=== PATIENT | male | born 1970 | race Hispanic/Latino ===

== ENCOUNTER 2018-02-22 07:56 | Emergency (ER) | payer OTHER ==
[~2018-02-22] VITALS: Ht 167.6 cm; Wt 99.8 kg
[~2018-02-22 07:56] MED LIST: BACTRIM DS TAB1 EACH PO; CRESTOR10 MG PO; PROCTOSOL-HC28.35 GM
[2018-02-22] MEDS ORDERED: FAMOTIDINE 20 MG/2 ML VIAL IV STA (08:12)
[2018-02-22] MEDS ORDERED: DICYCLOMINE HCL 20 MG/2 ML VIAL IM ONE (08:15)
[2018-02-22] MEDS ORDERED: SUCRALFATE 1 GM/10 ML SUSP PO ONE (08:15)
[2018-02-22 08:33] LABS: BASOPHILS % 0.7 % (0.0-1.0); EOSINOPHILS # (AUTO) 0.3 (0.0-0.4); EOSINOPHILS % 6.8 % (0.0-6.0); HEMATOCRIT 44.9 % (38.2-49.6); HEMOGLOBIN 15.5 g/dL (14.0-18.0); LYMPHOCYTES # (AUTO) 2.1 (1.0-3.2); LYMPHOCYTES % 49.3 % (18.0-39.1); MEAN CORPUSCULAR HEMOGLOBIN 29.6 pg (28-32); MEAN CORPUSCULAR HGB CONC 34.5 g/dL (31-35); MEAN CORPUSCULAR VOLUME 85.7 fL (81-99); MONOCYTES # (AUTO) 0.4 (0.2-0.8); MONOCYTES % 10.3 % (4.4-11.3); NEUTROPHILS # (AUTO) 1.4 (2.1-6.9); NEUTROPHILS % 32.7 % (38.7-80.0); PLATELET COUNT 154 x10e3/uL (140-360); RED BLOOD COUNT 5.24 x10e6/uL (4.3-5.7); RED CELL DISTRIBUTION WIDTH 13.3 % (11.7-14.4)
[2018-02-22 08:54] LABS: ALANINE AMINOTRANSFERASE 62 IU/L (0-55); ALBUMIN 3.6 g/dL (3.5-5.0); ALBUMIN/GLOBULIN RATIO 0.9 (0.8-2.0); ALKALINE PHOSPHATASE 63 IU/L (40-150); BLOOD UREA NITROGEN 15 mg/dL (7-26); BUN/CREATININE RATIO 19 (6-25); CALCIUM 9.1 mg/dL (8.4-10.2); CARBON DIOXIDE 25 mmol/L (22-29); CHLORIDE 105 mmol/L (98-107); CHOL/HDL RATIO 4.7 (3.9-4.7); CHOLESTEROL 265 MD/DL (0-199); CREATININE, SERUM 0.79 mg/dL (0.72-1.25); EST GLOMERULAR FILTRATION RATE > 60 ML/MIN (60-); GLUCOSE 100 mg/dL (74-118); HDL CHOLESTEROL 56 MG/DL (40-60); LDL CHOLESTEROL 171 MG/DL (60-130); LIPASE 25 U/L (8-78); SODIUM 137 mmol/L (136-145); TRIGLYCERIDES 189 MG/DL (0-149)
--- NOTE | 2018-02-22 09:33 | Diagnostic Imaging Report ---
PROCEDURE: X-RAY CHEST, TWO VIEWS COMPARISON: 02/24/2017. INDICATIONS: CHEST/EPIGASTRIC PAIN FINDINGS: The lungs are well-inflated. No focal airspace consolidation, pleural effusion, or pneumothorax. Stable moderate enlargement of the cardiac silhouette without pulmonary edema. No acute osseous abnormality. CONCLUSION: Moderate enlargement of the cardiac silhouette without vascular decompensation. Dictated by: Elmer Mcqueen M.D. on 02/22/2018 at 9:39 Electronically approved by: Elmer Mcqueen M.D. on 02/22/2018 at 9:39
--- NOTE | 2018-02-22 10:00 | Diagnostic Imaging Report ---
PROCEDURE:US GALLBLADDER COMPARISON:CT abdomen and pelvis with contrast 02/24/2017. INDICATIONS:Epigastric and RUQ Pain worse with meals TECHNIQUE: Sheehan-scale and color doppler transverse and longitudinal images of the right upper quadrant of the abdomen were obtained. FINDINGS: Liver: 15.9 cm in right mid-clavicular line. Diffusely increased parenchymal echogenicity. No masses. Main portal vein: 1.4 cm in caliber, hepatopedal flow. Gallbladder: No shadowing calculus, sludge, wall thickening, or pericholecystic fluid. Common Bile Duct: 0.5 cm in caliber. Sonographic Andrew's sign: Reported as negative. Right kidney: 11.9 cm. Normal renal cortical echogenicity. No solid masses or hydronephrosis. Pancreas: The visualized portions are unremarkable. Inferior vena cava: Patent Aorta: Non-aneurysmal Ascites: None in the right upper quadrant of the abdomen. CONCLUSION: Increased hepatic parenchymal echogenicity compatible with steatosis. Unremarkable sonographic appearance of the gallbladder. Dictated by: Elmer Mcqueen M.D. on 02/22/2018 at 10:05 Electronically approved by: Elmer Mcqueen M.D. on 02/22/2018 at 10:05
[2018-02-22 10:57] VITALS: BP 110/75
== END 2018-02-22 11:15 | disposition home or self-care (01) ==
LOC: ER 07:57
DX: R10.11 Right upper quadrant pain (principal); R10.13 Epigastric pain; K21.9 Gastro-esophageal reflux disease without esophagitis; K29.00 Acute gastritis without bleeding
CPT/HCPCS: 36415; 71046; 76705; 80053; 80061; 83690; 84484; 85025; 93005; 99284; J0500

== ENCOUNTER 2019-12-10 02:32 | Inpatient (IN) | payer OTHER ==
[2019-12-10] VITALS (8 sets, daily range): BP systolic 115–143; BP diastolic 71–89
[~2019-12-10] VITALS: Ht 170.2 cm; Wt 100.4 kg
--- OUTSIDE RECORDS SUMMARY | 2019-12-10 02:35 | XMS REPORT | Summary of Care ---
Author Author AYESHA Segura, KAYLEE CONTRERAS [facility] Unknown Address Unknown Phone Unavailable Care Team Providers Care Science Intern Name Role Phone AYESHA Segura, MACK Unavailable Unavailable [place] LOPEZ, YONG SHEA Unavailable Unavailable AYESHA LOPEZ [place], MACK Unavailable Unavailable Unavailable Unavailable Functional Status Name Dates Details Functional status health issues are not documented Status: Name Dates Details Cognitive status health issues are not d ocumented Status: Problems Name Dates Details Injury of left shoulder, initial encount er (959.2, S49.92XA) Status: Active Pain in both feet (729.5, M79.671) Status: Active Acute pain of left shoulder (719.41, M25 .512) Status: Active Plantar fasciitis of left foot (728.71, M72.2) Status: Active Plantar fasciitis of right foot (728.71, M72.2) Status: Active Complete rotator cuff tear of left shoul alejandro (727.61, M75.122) Status: Active 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 00) Status: Resolved History of kidney stones (V13.01, Z87.44 2) Status: Resolved Procedures Procedure Dates Details MR Shoulder w contrast [id number] Date: 23-Sep-2018 History of Rotator Cuff Repair Completed History of Kidney Surgery Completed History of Shoulder arthroscopy Complete d Immunization Name Dates Details Immunizations not documented Family History Name Dates Details Family history of cerebrovascular accide nt (CVA) (V17.1, Z82.3) Comments: Family History Status: Active Name Dates Details Family history of Patient denies medical problems (V49.89, Z78.9) Status: Active Name Dates Details Family history of Patient denies medical problems (V49.89, Z78.9) Status: Active Social History Name Dates Details - Status: Name Dates Details Never smoker Vital Signs Date Test Result Details 23-Sep-20188:29 BP Systolic 113 mm[Hg] Status: Comments: Lo cation: RUE; Position: Sitting BP Diastolic 76 mm[Hg] Status: Comments: Lo cation: RUE; Position: Sitting Weight 231 lb Status: Body Mass Index Calculated 36.18 kg/m2 Status: Body Surface Area Calculated 2.15 m2 Status: Results Date Description Value Details Results not documented Plan of Care Name Dates Details Planned Observations Planned Goals not documented Interventions Provided Plan* Patient Education/Instructions: * Patient Education Provided * Reassurance * Counseling Provided - Discussed with Family/Patient * Family/Patient given opportunity to ask questions. * Family/Patient Verbalized Understanding. * MRI report reviewed and finding discussed with patient and family. * Patient/Parent to call or return with any abnormal changes * Orders: * Referrals: * MRI results discussed with patient. Pt referred to Dr. Morales and instructed to continue HEP. Instructions Name Dates Details Instructions not documented Encounters Appointment; MICHELLE BULLOCK NP Encounter Diagnosis: Problem not documented On: 09-Feb-2018 15:30 Appointment; MACK HODGE M.D. Encounter Diagnosis: Problem not documented On: 09-Mar-2018 14:30 Appointment; MACK HODGE M.D. Encounter Diagnosis: Problem not documented On: 22-Mar-2018 16:00 Appointment; MICHELLE BULLOCK NP Encounter Diagnosis: Problem not documented On: 01-Apr-2018 10:30 Appointment; MICHELLE BULLOCK NP Encounter Diagnosis: Problem not documented On: 16-May-2018 16:45 Appointment; MICHELLE BULLOCK NP Encounter Diagnosis: Problem not documented On: 27-Jun-2018 8:15 Appointment; MACK HODGE M.D. Encounter Diagnosis: Problem not documented On: 05-Aug-2018 7:00 Appointment; MACK HODGE M.D. Encounter Diagnosis: Problem not documented On: 23-Sep-2018 7:45 Appointment; MACK HODGE M.D. Encounter Diagnosis: Problem not documented On: 07-Oct-2018 9:30
--- OUTSIDE RECORDS SUMMARY | 2019-12-10 02:35 | XMS REPORT | Summary of Care ---
Author Author AYESHA Segura, KAYLEE Cristobal Unknown Address Unknown Phone Unavailable Care Team Providers Care Clinical Researcher Name Role Phone AYESHA Segura, MACK Unavailable Unavailable [place] LOPEZ, YONG SHEA Unavailable Unavailable AYESHA LOPEZ [place], MACK Unavailable Unavailable Unavailable Unavailable Functional Status [...] rupture of left bic eps tendon (727.62, S46.112A) Status: Active Shoulder impingement, left (726.2, M75.4 2) Status: Active Superior gl[facility] lab[facility], [facility] (840.7, S43.432A) Status: Active Medications [...] 2) Status: Resolved Procedures Procedure Dates Details History of Rotator Cuff Repair Completed History [...] Details - Status: Name Dates Details Never smoked tobacco (finding) Vital Signs Date Test Result Details No Known Vitals to report Results Date Description Value Details Results not documented Plan of Care Name Dates Details Planned Observations Planned Goals not documented Instructions Name Dates Details Instructions not documented Encounters Appointment; MICHELLE BULLOCK APRN Encounter Diagnosis: Problem not documented On: 09-Feb-2018 15:30 Appointment; MACK HODGE M.D. Encounter Diagnosis: Problem not documented On: 09-Mar-2018 14:30 Appointment; MACK HODGE M.D. Encounter Diagnosis: Problem not documented On: 22-Mar-2018 16:00 Appointment; MICHELLE BULLOCK APRN Encounter Diagnosis: Problem not documented On: 01-Apr-2018 10:30 Appointment; MICHELLE BULLOCK APRN Encounter Diagnosis: Problem not documented On: 16-May-2018 16:45 Appointment; MICHELLE BULLOCK APRN Encounter Diagnosis: Problem not documented On: 27-Jun-2018 8:15 Appointment; MACK HODGE M.D. Encounter Diagnosis: Problem not documented On: 05-Aug-2018 7:00 Appointment; MACK HODGE M.D. Encounter Diagnosis: Problem not documented On: 23-Sep-2018 7:45 Appointment; MACK HODGE M.D. Encounter Diagnosis: Problem not documented On: 07-Oct-2018 9:30
--- OUTSIDE RECORDS SUMMARY | 2019-12-10 02:35 | XMS REPORT ---
Author Author [facility] t Organization [facility] Address [address] [place] [address] Phone Unavailable Care Team Providers Care Zipper Setter Chainstitch Name Role Phone WALLACE LOPEZ, Sterling JAMES PCP MACK HODGE M.D. Attphys Unavailable MICHELLE BULLOCK APRN Attphys Unavailable Flakita BERNAL Attphys Unavailable Payers Payer Name Policy Type Policy Number Effective Date Expiration Date Tierra Morgan o [id number] 2010 00:00:00 NILE bowers [facility] Problems Condition Name Condition Details Condition Category Status Onset Date Resolution Date Last Treatment Date Treating Clinician Comments Source History of Back pain History of Back pain Problem Resolved [facility] History of High cholesterol History of High cholesterol Problem Resolved [facility] History of kidney stones History of kidney stones Problem Resolved [facility] Acute pain of left shoulder Acute pain of left shoulder Problem Active [facility] Shoulder impingement, left Shoulder impingement, left Problem Active [facility] Pain in both feet Pain in both feet Problem Active [facility] Plantar fasciitis of right foot Plantar fasciitis of right foot Pro blem Active 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 Par tial degenerative rupture of left biceps tendon Problem Active [facility] Complete rotator cuff tear of left shoulder Complete r otator cuff tear of left shoulder Problem Active [facility] Superior glenoid labrum lesion of left shoulder, initi al encounter Superior glenoid labrum lesion of left shoulder, initial encounter Problem Active [facility] Injury of left shoulder, initial encounter Injury of l eft shoulder, initial encounter Problem Active [facility] Allergies, Adverse Reactions, Alerts This patient has no known allergies or adverse reactions. Family History Family Member Diagnosis Comments Start Date Stop Date Source Unknown Family Member Family history of cerebrovascular acci dent (CVA) Family History [facility] Mother Family history of Patient denies medical problems [facility] Father Family history of Patient denies medical problems [facility] Social History Smoking Status Start Date Stop Date Source Never smoked tobacco (finding) [facility] Medications Ordered Medication Name Filled Medication Name Start Date Stop Da te Current Medication? Ordering Clinician Indication Dosage Frequency Signature (SIG) Comments Components Source Hydrocortisone (Proctosol-Hc) 28.35 Gm Cream..g. [place] cortisone (Proctosol-Hc) 28.35 Gm Cream..g. Yes C [facility] Rosuvastatin Calcium (Crestor) 10 Mg Tab Rosuvastatin Calcium (Crestor) 10 Mg Tab Yes 10 Daily [facility] Sulfamethoxazole/Trimethoprim (Bactrim Ds Tablet) 1 Ea ch Tablet Sulfamethoxazole/Trimethoprim (Bactrim Ds Tablet) 1 Each Tablet Yes 1 Twice A Day [facility] Vital Signs Vital Name Observation Time Observation Value Comments Source BP Systolic 2018-09-23 08:29:00 113 mm[Hg] Location: RUE; Positi on: Sitting [facility] BP Diastolic 2018-09-23 08:29:00 76 mm[Hg] Location: HELIO; Positi on: Sitting [facility] Weight 2018-09-23 08:29:00 231 [lb_av] [facility] Body Mass Index Calculated 2018-09-23 08:29:00 36.18 kg/m2 [facility] BP Systolic 2018-08-05 07:24:00 123 mm[Hg] Location: CARLOS Positi on: Sitting [facility] BP Diastolic 2018-08-05 07:24:00 85 mm[Hg] Location: CARLOS Positi on: Sitting [facility] Height 2018-08-05 07:24:00 67 [in_us] [facility] Weight 2018-08-05 07:24:00 230 [lb_av] [facility] Body Mass Index Calculated 2018-08-05 07:24:00 36.02 kg/m2 [facility] Heart Rate 2018-08-05 07:24:00 81 /min Location: L Radial; [facility] BP Systolic 2018-06-27 08:41:00 122 mm[Hg] Location: RUE; Positi on: Sitting [facility] BP Diastolic 2018-06-27 08:41:00 80 mm[Hg] Location: RUE; Positi on: Sitting [facility] Height 2018-06-27 08:41:00 67 [in_us] [facility] Heart Rate 2018-06-27 08:41:00 86 /min Location: R Radial; [facility] Height 2018-02-09 15:06:00 67 [in_us] [facility] Weight 2018-02-09 15:06:00 230.5 [lb_av] [facility] Body Mass Index Calculated 2018-02-09 15:06:00 36.1 kg/m2 [facility] Procedures Procedure Date / Time Performed Performing Clinician Ivanna benitez MR Shoulder w contrast [id number] 2018-09-23 00:00:00 [facility] X-ray of chest, two views 2018-02-22 00:00:00 DEIDRA BERNAL [facility] US gallbladder 2018-02-22 00:00:00 DEIDRA BERNAL [facility] MR Shoulder wo contrast [id number] 2018-02-09 00:00:00 [facility] History of [facility]ator Cuff Repair [facility] of Kidney Surgery [facility] History of Shoulder arthroscopy [facility] Encounters Start Date/Time End Date/Time Encounter Type Admission Type Attendi [facility] Facility Care Department Encounter ID Source 2018-10-07 09:30:00 2018-10-07 09:30:00 Appointment; MACK JUNIOR M.D. TORRES-BARRE, LAURA, M.D. [place] [address] [id number] [facility] 2018-09-23 07:45:00 2018-09-23 07:45:00 Appointment; MACK JUNIOR M.D. TORRES-BARRE, LAURA, M.D. [facility] y [id number] [facility] 2018-08-05 07:00:00 2018-08-05 07:00:00 Appointment; MACK JUNIOR M.D. TORRES-BARRE, LAURA, M.D. [facility] y [id number] [facility] 2018-06-27 08:15:00 2018-06-27 08:15:00 Appointment; ROSA BULLOCK APRN SABBARA, ROBERT, APRN [facility] [id number] [facility] 2018-05-16 16:45:00 2018-05-16 16:45:00 Appointment; ROSA BULLOCK APRN SABBARA, ROBERT, APRN [facility] [id number] [facility] 2018-04-01 10:30:00 2018-04-01 10:30:00 Appointment; ROSA BULLOCK APRN SABBARA, ROBERT, APRN [facility] [id number] [facility] 2018 16:00:00 2018 16:00:00 Appointment; MACK JUNIOR M.D. TORRES-BARRE, LAURA, M.D. [facility] y [id number] [facility] 2018-03-09 14:30:00 2018-03-09 14:30:00 Appointment; MACK JUNIOR M.D. TORRES-BARRE, LAURA, M.D. [facility] y [id number] [facility] 2018-02-22 07:57:00 2018-02-22 11:15:00 Departed Emergency Room 1 DEIDRA BERNAL [facility] [id number] [facility] 2018-02-09 15:30:00 2018-02-09 15:30:00 Appointment; ROSA BULLOCK APRN SABBARA, ROBERT, APRN [facility] [id number] [facility] Results Test Description Test Time Test Comments Results Result Comments Source US GALLBLADDER 2018-02-22 10:05:00 [facility] [address] [address] Patient Name: KAYLEE MCELROY MR #: [id number] : 1970 Age/Sex: 47/M Req #: [id number] Adm Physician: Ordered by: DEIDRA BERNAL MD Report #: [id number] Location: ER Room/Bed: Procedure: [id number] US/US GALLBLADDER Exam Date: 02/22/18 Exam Time: 927 REPORT STATUS: Signed PROCEDURE: US GALLBLADDER COMPARISON: CT abdomen and pelvis with contrast 02/24/2017. INDICATIONS: Epigastric and RUQ Pain worse with meals TECHNIQUE: Sheehan-scale and color doppler transverse and longitudinal images of the right upper quadrant of the abdomen were obtained. FINDINGS: Liver: 15.9 cm in right mid-clavicular line. Diffusely increased parenchymal echogenicity. No masses. Main portal vein: 1.4 cm in caliber, hepatopedal flow. Gallbladder: No shadowing calculus, sludge, wall thickening, or pericholecystic fluid. Common Bile Duct: 0.5 cm in caliber. Sonographic Andrew's sign: Reported as negative. Right kidney: 11.9 cm. Normal renal cortical echogenicity. No solid masses or hydronephrosis. Pancreas: The visualized portions are unremarkable. Inferior vena cava: Patent Aorta: Non-aneurysmal Ascites: None in the right upper quadrant of the abdomen. CONCLUSION: Increased hepatic parenchymal echogenicity compatible with steatosis. Unremarkable sonographic appearance of the gallbladder. Dictated by: Gokul Pisano M.D. on 02/22/2018 at 10:05 Electronically approved by: Gokul Pisano M.D. on 02/22/2018 at 10:05 Dictated By: GKOUL PISANO MD 1005 Transcribed By: MEEK on 02/22/18 1005 COPY TO: DEIDRA BERNAL MD CHEST 2 VIEWS 2018-02-22 09:39:00 [place] [address] Patient Name: KAYLEE MCELROY MR #: [id number] : 1970 Age/Sex: 47/M Req #: [id number] Adm Physician: Ordered by: DEIDRA BERNAL MD Report #: [id number] Location: ER Room/Bed: Procedure: [id number] DX/CHEST 2 VIEWS Exam Date: 02/22/18 Exam Time: 0905 REPORT STATUS: Signed PROCEDURE: X-RAY CHEST, TWO VIEWS COMPARISON: 02/24/2017. INDICATIONS: CHEST/EPIGASTRIC PAIN FINDINGS: The lungs are well-inflated. No focal airspace consolidation, pleural effusion, or pneumothorax. Stable moderate enlargement of the cardiac silhouette without pulmonary edema. No acute osseous abnormality. CONCLUSION: Moderate enlargement of the cardiac silhouette without vascular decompensation. Dictated by: Gokul Pisano M.D. on 02/22/2018 at 9:39 Electronically approved by: Gokul Pisano M.D. on 02/22/2018 at 9:39 Dictated By: GOKUL PISANO MD 0939 Transcribed By: MEEK on 02/22/18 0939 COPY TO: DEIDRA BERNAL MD Troponin I 2018-02-22 09:03:00 Test Item Troponin I (test code = ICL0314) 0.004 0-0.300 [facility] Rtfly7702-52-30 08:57:00* Test Item Value Reference Range Interpretation Comments Sodium Level (test code = 2951-2) 137 136-145 [facility]Potassium Wmwbf3797-15-81 08:57:00* Test Item Value Reference Range Interpretation Comments Potassium Level (test code = 2823-3) 4.0 3.5-5.1 [facility] CampusChloride Dirgg3592-83-07 08:57:00* Test Item Value Reference Range Interpretation Comments Chloride Level (test code = 2075-0) 105 98-107 [facility] CampusCarbon Dioxide Myred3568-13-75 08:57:00* Test Item Value Reference Range Interpretation Comments Carbon Dioxide Level (test code = 2028-9) 25 22-29 [facility] CampusAnion Iea1982-41-36 08:57:00* Test Item Value Reference Range Interpretation Comments Anion Gap (test code = 63508-7) 11.0 8-16 [facility] CampusBlood Urea Cubmuhuk7235-36-38 08:57:00* Test Item Value Reference Range Interpretation Comments Blood Urea Nitrogen (test code = 3094-0) 15 7-26 [facility] CampusCreatinine2018-08-07 08:57:00* Test Item Value Reference Range Interpretation Comments Creatinine (test code = 2160-0) 0.79 0.72-1.25 [facility] CampusBUN/Creatinine Vufic4596-46-81 08:57:00* Test Item Value Reference Range Interpretation Comments BUN/Creatinine Ratio (test code = 3097-3) 19 6-25 [facility] CampusEstimat Glomerular Filtration Rate 2018-02-22 08:57:00* Test Item Value Reference Range Interpretation Comments Estimat Glomerular Filtration Rate (test code = 90822-0) 60- >60 Ranges were taken from the National Kidney Disease Education Program and the [facility] Foundation literature.Reference ranges:60 or greater: Urqgxt35-19 ( for 3 consecutive months): Chronic kidney disease 15 or less: Kidney failureThe Hospitals of Providence Memorial CampusGlucose Osrnt5373-31-71 08:57:00* Test Item Value Reference Range Interpretation Comments Glucose Level (test code = HCD7023) 100 74-118 [facility] CampusCalcium Gftyc8453-00-75 08:57:00* Test Item Value Reference Range Interpretation Comments Calcium Level (test code = 18973-8) 9.1 8.4-10.2 [facility] CampusTotal Zvgyqcnbj6924-01-39 08:57:00* Test Item Value Reference Range Interpretation Comments Total Bilirubin (test code = 1975-2) 0.7 0.2-1.2 [facility] CampusAspartate Amino Transf (AST/SGOT) 2018-02-22 08:57:00* Test Item Value Reference Range Interpretation Comments Aspartate Amino Transf (AST/SGOT) (test code = Aspartate Amino Transf (AST/SGOT)) 31 5-34 [facility] CampusAlanine Aminotransferase (ALT/SGPT) 2018-02-22 08:57:00* Test Item Value Reference Range Interpretation Comments Alanine Aminotransferase (ALT/SGPT) (test code = 1742-6) 62 0-55 [facility] CampusTotal Ojirbxx2648-79-91 08:57:00* Test Item Value Reference Range Interpretation Comments Total Protein (test code = 2885-2) 7.8 6.5-8.1 [facility] CampusAlbumin2018-08-07 08:57:00* Test Item Value Reference Range Interpretation Comments Albumin (test code = 1751-7) 3.6 3.5-5.0 [facility] CampusGlobulin2018-08-07 08:57:00* Test Item Value Reference Range Interpretation Comments Globulin (test code = 56132-7) 4.2 2.3-3.5 [facility] CampusAlbumin/Globulin Mwflq9541-40-82 08:57:00 * Test Item Value Reference Range Interpretation Comments Albumin/Globulin Ratio (test code = 1759-0) 0.9 0.8-2.0 [facility] CampusAlkaline Wvbgqgpicyk2614-08-01 08:57:00* Test Item Value Reference Range Interpretation Comments Alkaline Phosphatase (test code = 6768-6) 63 40-150 [facility] CampusTriglycerides Wbpkq9381-90-94 08:57:00* Test Item Value Reference Range Interpretation Comments Triglycerides Level (test code = 2571-8) 189 0-149 [facility] CampusCholesterol Qpmlr5375-92-20 08:57:00* Test Item Value Reference Range Interpretation Comments Cholesterol Level (test code = 2093-3) 265 0-199 Less than 200 mg/dL Low Arna260 - 239 mg/dL Borderline Oxxj901 m g/dl and greater High Risk [facility] CampusLDL Rrjeryggvod4068-70-62 08:57:00* Test Item Value Reference Range Interpretation Comments LDL Cholesterol (test code = 2089-1) 171 60-130 [facility] CampusHDL Xdpavncntyf0215-91-27 08:57:00* Test Item Value Reference Range Interpretation Comments HDL Cholesterol (test code = 2085-9) 56 40-60 [facility] CampusCholesterol/HDL Dsyxt8366-57-92 08:57:00 * Test Item Value Reference Range Interpretation Comments Cholesterol/HDL Ratio (test code = 9830-1) 4.7 3.9-4.7 [facility] CampusLipase2018-08-07 08:57:00* Test Item Value Reference Range Interpretation Comments Lipase (test code = 3040-3) 25 8-78 [facility] CampusWhite Blood Ewjto5466-24-23 08:34:00* Test Item Value Reference Range Interpretation Comments White Blood Count (test code = 6690-2) 4.26 4.8-10.8 [facility] CampusRed Blood Llzle5206-30-23 08:34:00* Test Item Value Reference Range Interpretation Comments Red Blood Count (test code = 789-8) 5.24 4.3-5.7 [facility] CampusHemoglobin2018-08-07 08:34:00* Test Item Value Reference Range Interpretation Comments Hemoglobin (test code = 19063-0) 15.5 14.0-18.0 [facility] CampusHematocrit2018-08-07 08:34:00* Test Item Value Reference Range Interpretation Comments Hematocrit (test code = 4544-3) 44.9 38.2-49.6 [facility] CampusMean Corpuscular Fwdbxh2097-79-28 08:34:00* Test Item Value Reference Range Interpretation Comments Mean Corpuscular Volume (test code = 787-2) 85.7 81-99 [facility] CampusMean Corpuscular Uejwsybutc3397-42-85 08:34:00* Test Item Value Reference Range Interpretation Comments Mean Corpuscular Hemoglobin (test code = 785-6) 29.6 28-32 [facility] CampusMean Corpuscular Hemoglobin Concent 2018-02-22 08:34:00* Test Item Value Reference Range Interpretation Comments Mean Corpuscular Hemoglobin Concent (test code = 786-4) 34.5 31-35 [facility] CampusRed Cell Distribution Zxttk1809-89-24 08:34:00* Test Item Value Reference Range Interpretation Comments Red Cell Distribution Width (test code = 67577-2) 13.3 11.7 -14.4 [facility] CampusPlatelet Vnrvp7929-04-79 08:34:00* Test Item Value Reference Range Interpretation Comments Platelet Count (test code = 777-3) 154 140-360 [facility] CampusNeutrophils (%) (Auto)2018-02-22 08:34:00 * Test Item Value Reference Range Interpretation Comments Neutrophils (%) (Auto) (test code = 93960-5) 32.7 38.7-80.0 [facility] CampusLymphocytes (%) (Auto)2018-02-22 08:34:00 * Test Item Value Reference Range Interpretation Comments Lymphocytes (%) (Auto) (test code = 736-9) 49.3 18.0-39.1 [facility] CampusMonocytes (%) (Auto)2018-02-22 08:34:00* Test Item Value Reference Range Interpretation Comments Monocytes (%) (Auto) (test code = 5905-5) 10.3 4.4-11.3 [facility] CampusEosinophils (%) (Auto)2018-02-22 08:34:00 * Test Item Value Reference Range Interpretation Comments Eosinophils (%) (Auto) (test code = 713-8) 6.8 0.0-6.0 [facility] CampusBasophils (%) (Auto)2018-02-22 08:34:00* Test Item Value Reference Range Interpretation Comments Basophils (%) (Auto) (test code = 706-2) 0.7 0.0-1.0 [facility] CampusIM GRANULOCYTES %2018-02-22 08:34:00* Test Item Value Reference Range Interpretation Comments IM GRANULOCYTES % (test code = IM GRANULOCYTES %) 0.2 0.0- 1.0 [facility] CampusNeutrophils # (Auto)2018-02-22 08:34:00* Test Item Value Reference Range Interpretation Comments Neutrophils # (Auto) (test code = 751-8) 1.4 2.1-6.9 [facility] CampusLymphocytes # (Auto)2018-02-22 08:34:00* Test Item Value Reference Range Interpretation Comments Lymphocytes # (Auto) (test code = 24813-9) 2.1 1.0-3.2 [facility] CampusMonocytes # (Auto)2018-02-22 08:34:00* Test Item Value Reference Range Interpretation Comments Monocytes # (Auto) (test code = 742-7) 0.4 0.2-0.8 [facility] CampusEosinophils # (Auto)2018-02-22 08:34:00* Test Item Value Reference Range Interpretation Comments Eosinophils # (Auto) (test code = 711-2) 0.3 0.0-0.4 [facility] CampusBasophils # (Auto)2018-02-22 08:34:00* Test Item Value Reference Range Interpretation Comments Basophils # (Auto) (test code = 704-7) 0.0 0.0-0.1 [facility] CampusAbsolute Immature Granulocyte (auto 2018-02-22 08:34:00* Test Item Value Reference Range Interpretation Comments Absolute Immature Granulocyte (auto (roland t code = Absolute Immature Granulocyte (auto) 0.01 0-0.1 [facility][U] XR FOOT MIN 3 VWS KCBSZTLTA2735-21-00 15:01:00Images acquired, not reported on this accession number.[facility]
--- NOTE | 2019-12-10 02:55 | Emergency Department Note ---
History of Present Illnes History of Present Illness Chief Complaint: Respiratory History of Present Illness This is a 49 year old male who had a positive covid test on pr esents with c/o fever went up to over 102, also feels more sob tonight. took motrin lpta to er, pt is on Plaquenil, cefuroxime, azithromycin, prednisone . Historian: Patient Arrival Mode: Car Onset (how long ago): week(s) (1) Location: none Quality: fever, chills, sob Radiation: non-radiation Severity: mild Onset quality: gradual Duration (how long): week(s) (1) Timing of current episode: intermittent Progression: waxing and waning Context: recent illness (postive for covid) Relieving factors: none Exacerbating factors: none Associated symptoms: cough, fever/chills, shortness of breath Past Medical/Family History Physician Review I have reviewed the patient's past medical and family history. Any updates have been documented here. Past Medical History Recent Fever: Yes Clinical Suspicion of Infectio: No New/Unexplained Change in Ment: No Past Medical History: None, Kidney Stones, Hyperlipedemia Other Medical History: Cholesterol Other Surgery: Kidney stones Social History Smoking Cessation: Never Smoker Alcohol Use: None Any Illegal Drug Use: No Family History Family history of heart diseas: No Other Last Tetanus: UTD Review of Systems Review of Systems Constitutional: as per HPI, chills, fever EENTM: no symptoms Cardiovascular: no symptoms Respiratory: as per HPI, cough, dyspnea Gastrointestinal: no symptoms Genitourinary: no symptoms Musculoskeletal: no symptoms Neurological: no symptoms Psychological: no symptoms Endocrine: no symptoms Hematological/Lymphatic: no symptoms Review of other systems All other systems reviewed and negative. Physical Exam Related Data Allergies: Coded Allergies: No Known Allergies (Unverified , 02/22/18) Triage Vital Signs Vital Signs Date Time Temp Pulse Resp B/P (MAP) Pulse Ox O2 Delivery O2 Flow Rate FiO2 12/10/19 02:42 100.7 105 24 133/79 96 Vital signs reviewed: Yes Physical Exam CONSTITUTIONAL Constitutional: well-developed, well-nourished HENT HENT: normocephalic, atraumatic, oropharynx clear/moist, nose normal HENT L/R: left ext ear normal, right ext ear normal EYES Eyes: PERRL, conjunctivae normal NECK Neck: ROM normal PULMONARY Pulmonary: effort normal, breath sounds normal, other (mild decrease bs at base) CARDIOVASCULAR Cardiovascular: regular rhythm, heart sounds normal, capillary refill normal, tachycardia (105) GASTROINTESTINAL Abdominal: soft, nontender, bowel sounds normal GENITOURINARY Genitourinary: exam deferred SKIN Skin: warm, dry MUSCULOSKELETAL Musculoskeletal: ROM normal NEUROLOGICAL Neurological: alert, oriented x 3, no gross motor or sensory deficits PSYCHOLOGICAL Psychological: mood/affect normal, judgement normal Results Laboratory Laboratory Laboratory Tests Test 12/10/19 02:50 White Blood Count 8.59 x10e3/uL (4.8-10.8) Red Blood Count 5.12 x10e6/uL (4.3-5.7) Hemoglobin 14.4 g/dL (14.0-18.0) Hematocrit 43.9 % (38.2-49.6) Mean Corpuscular Volume 85.7 fL (81-99) Mean Corpuscular Hemoglobin 28.1 pg (28-32) Mean Corpuscular Hemoglobin Concent 32.8 g/dL (31-35) Red Cell Distribution Width 13.3 % (11.7-14.4) Platelet Count 154 x10e3/uL (140-360) Neutrophils (%) (Auto) 68.0 % (38.7-80.0) Lymphocytes (%) (Auto) 26.2 % (18.0-39.1) Monocytes (%) (Auto) 5.4 % (4.4-11.3) Eosinophils (%) (Auto) 0.1 % (0.0-6.0) Basophils (%) (Auto) 0.1 % (0.0-1.0) Neutrophils # (Auto) 5.8 (2.1-6.9) Lymphocytes # (Auto) 2.3 (1.0-3.2) Monocytes # (Auto) 0.5 (0.2-0.8) Eosinophils # (Auto) 0.0 (0.0-0.4) Basophils # (Auto) 0.0 (0.0-0.1) Absolute Immature Granulocyte (auto 0.02 x10e3/uL (0-0.1) Sodium Level 136 mmol/L (136-145) Potassium Level 3.6 mmol/L (3.5-5.1) Chloride Level 107 mmol/L (98-107) Carbon Dioxide Level 19 mmol/L (22-29) Anion Gap 13.6 mmol/L (8-16) Blood Urea Nitrogen 15 mg/dL (7-26) Creatinine 0.83 mg/dL (0.72-1.25) Estimat Glomerular Filtration Rate > 60 ML/MIN (60-) BUN/Creatinine Ratio 18 (6-25) Glucose Level 108 mg/dL (74-118) Lactic Acid Level 1.4 mmol/L (0.5-2.0) Calcium Level 8.6 mg/dL (8.4-10.2) Total Bilirubin 0.3 mg/dL (0.2-1.2) Aspartate Amino Transf (AST/SGOT) 17 IU/L (5-34) Alanine Aminotransferase (ALT/SGPT) 30 IU/L (0-55) Alkaline Phosphatase 66 IU/L (40-150) Creatine Kinase 34 IU/L (30-200) Creatine Kinase MB 0.30 ng/mL (0-5.0) Troponin I 0.004 ng/mL (0-0.300) Total Protein 7.1 g/dL (6.5-8.1) Albumin 3.0 g/dL (3.5-5.0) Globulin 4.1 g/dL (2.3-3.5) Albumin/Globulin Ratio 0.7 (0.8-2.0) Lab results reviewed: Yes Imaging Imaging results reviewed: Yes Impressions Procedure: [id number] DX/CHEST SINGLE (PORTABLE) Exam Date: 12/10/19 Exam Time: 0320 REPORT STATUS: Signed EXAMINATION: CHEST SINGLE (PORTABLE) INDICATION: sob, reports positive outpt covid test\ COMPARISON: Chest radiograph 02-22-2018. FINDINGS: TUBES and LINES: None. LUNGS: Lungs are moderately inflated. There are peripheral predominant patchy opacities in the bilateral mid and lower lung zones. PLEURA: No pleural effusion or pneumothorax. HEART AND MEDIASTINUM: The cardiomediastinal silhouette is mildly enlarged, likely accentuated by portable technique. BONES AND SOFT TISSUES: No acute osseous lesion. Soft tissues are unremarkable. UPPER ABDOMEN: No free air under the diaphragm. IMPRESSION: Findings consistent with history of viral pneumonia. Recommend follow-up chest radiograph in 6-8 weeks to assess for resolution. Signed by: Dr. 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 Assessment & Plan Assessment & Plan Final Impression: (1) Multifocal pneumonia (2) COVID-19 virus infection (3) Dyspnea Assessment & Plan pt with positive covid test presents for fever, chills and sob, cbc, cmp, ekg, cxr, lactic acid, cardiac enzymes ordered to eval for pneumonia, sepsis, electrolyte abnormality, myocardial infarction tylenol 975 mg po ordered pt with multifocal pneumonia and recent positive covid test, will admit started on cefepime 2 grams iv zithromax 500 mg iv vancomycin 1 gram iv i spoke with dr young, dr farnsworth and dr jaylyn mckeon, admit to inpatient Depart Disposition: ADMITTED (med surg covid unit) Last Vital Signs Date Time Temp Pulse Resp B/P (MAP) Pulse Ox O2 Delivery O2 Flow Rate FiO2 12/10/19 02:42 100.7 105 24 133/79 96 Home Meds Reported Medications Hydrocortisone (PROCTOSOL-HC) 28.35 Gm Cream..g. 02/24/17 Sulfamethoxazole/Trimethoprim (BACTRIM DS TABLET) 1 Each Tablet, 1 TAB PO BID, #60 TAB 02/24/17 Rosuvastatin Calcium (CRESTOR) 10 Mg Tab, 10 MG PO DAILY THERAPEUTICALLY SUBSTITUTED WITH SIMVASTATIN 40MG 02/24/17 LISANDRA OVERTON MD December 10, 2019 02:55
[2019-12-10] MEDS ORDERED: ACETAMINOPHEN 325 MG TAB PO ONE (03:00)
[2019-12-10 03:29] LABS: BASOPHILS % 0.1 % (0.0-1.0); EOSINOPHILS % 0.1 % (0.0-6.0); HEMATOCRIT 43.9 % (38.2-49.6); HEMOGLOBIN 14.4 g/dL (14.0-18.0); LYMPHOCYTES # (AUTO) 2.3 (1.0-3.2); LYMPHOCYTES % 26.2 % (18.0-39.1); MEAN CORPUSCULAR HEMOGLOBIN 28.1 pg (28-32); MEAN CORPUSCULAR HGB CONC 32.8 g/dL (31-35); MEAN CORPUSCULAR VOLUME 85.7 fL (81-99); MONOCYTES # (AUTO) 0.5 (0.2-0.8); MONOCYTES % 5.4 % (4.4-11.3); NEUTROPHILS # (AUTO) 5.8 (2.1-6.9); PLATELET COUNT 154 x10e3/uL (140-360); RED BLOOD COUNT 5.12 x10e6/uL (4.3-5.7); RED CELL DISTRIBUTION WIDTH 13.3 % (11.7-14.4)
[2019-12-10 03:54] LABS: ALANINE AMINOTRANSFERASE 30 IU/L (0-55); ALBUMIN/GLOBULIN RATIO 0.7 (0.8-2.0); ALKALINE PHOSPHATASE 66 IU/L (40-150); ANION GAP 13.6 mmol/L (8-16); BLOOD UREA NITROGEN 15 mg/dL (7-26); BUN/CREATININE RATIO 18 (6-25); CALCIUM 8.6 mg/dL (8.4-10.2); CARBON DIOXIDE 19 mmol/L (22-29); CHLORIDE 107 mmol/L (98-107); CREATINE KINASE 34 IU/L (30-200); CREATININE, SERUM 0.83 mg/dL (0.72-1.25); EST GLOMERULAR FILTRATION RATE > 60 ML/MIN (60-); GLUCOSE 108 mg/dL (74-118); POTASSIUM 3.6 mmol/L (3.5-5.1); SODIUM 136 mmol/L (136-145)
--- NOTE | 2019-12-10 04:24 | Diagnostic Imaging Report ---
EXAMINATION: CHEST SINGLE (PORTABLE) INDICATION: sob, reports positive outpt covid test\ COMPARISON: Chest radiograph 02-22-2018. FINDINGS: TUBES and LINES: None. LUNGS: Lungs are moderately inflated. There are peripheral predominant patchy opacities in the bilateral mid and lower lung zones. PLEURA: No pleural effusion or pneumothorax. HEART AND MEDIASTINUM: The cardiomediastinal silhouette is mildly enlarged, likely accentuated by portable technique. BONES AND SOFT TISSUES: No acute osseous lesion. Soft tissues are unremarkable. UPPER ABDOMEN: No free air under the diaphragm. IMPRESSION: Findings consistent with history of viral pneumonia. Recommend follow-up chest radiograph in 6-8 weeks to assess for resolution. Signed by: Dr. Esme Aguilar MD on 12/10/2019 4:21 AM
[2019-12-10] MEDS ORDERED: CEFEPIME 2 GM/NS 0.9% 100 ML 100 ML IV SCH ×2 (04:45→05:00)
[2019-12-10] MEDS ORDERED: VANCOMYCIN 1GM/NS 250 ML 250 ML IV SCH (05:00)
[2019-12-10] MEDS ORDERED: SODIUM CHLORIDE 0.9% 1000ML 1,000 ML IV ONE (05:15)
[2019-12-10] MEDS: AZITHROMYCIN 500MG/NS 250 ML 250 ML IV SCH (05:27)
--- NOTE | 2019-12-10 06:00 | NUR ---
PT ARRIVE BY WHEELCHAIR TO ROOM 184. PT IS AAOX3, RR EVEN AND NON-LABORED, ON ROOM AIR. NO ACTIVE SIGNS OR SYMPTOMS OF DISTRESS NOTED. PT AMBULATORY WITH STAND BY ASSIST TO HOSPITAL BED. ORIENTED PT TO HOSPITAL ROOM, CALL LIGHT, PHONE AND BED CONTROLS. PT VERBALIZED UNDERSTANDING. LEFT PT LAYING SEMI FOWLERS IN BED,BED IN LOW LOCKED POSITION, SIDE RAILS UPX2, CALL LIGHT AND PHONE WITHIN REACH.
[2019-12-10] MEDS ORDERED: ZINC SULFATE220 M1 PO (06:34)
[2019-12-10] MEDS ORDERED: CEFUROXIME250 MG PO (06:34)
[2019-12-10] MEDS ORDERED: ADVIL200 MG PO (06:34)
[2019-12-10] MEDS ORDERED: HYDROXYCHLOROQ200 MG PO (06:34)
[2019-12-10] MEDS ORDERED: PREDNISONE20 MG PO (06:34)
[2019-12-10] MEDS ORDERED: AZITHROMYCIN250 MG PO (06:34)
--- NOTE | 2019-12-10 07:02 | NUR ---
CHANGE OF SHIFT REPORT RECEIVED FROM PM NURSE. PT IN STABLE CONDITION.
--- NOTE | 2019-12-10 11:47 | Consultation ---
DATE OF CONSULTATION: Pulmonary Critical Care Consultation CHIEF COMPLAINT: Fever and shortness of breath. HISTORY OF PRESENT ILLNESS: The patient is a 49-year-old man. He denies any past cardiopulmonary history. About 6 days ago, he developed fever and some cough. He went to see his primary physician and was started on hydroxychloroquine along with Zithromax and zinc. He also went for a COVID-19 test, which was positive. Yesterday, he developed some shortness of breath, which prompted a visit to the emergency department. He also had fevers, which were difficult to control at home. He received some Tylenol as well as a small amount of IV fluid in the emergency department and reports some improvement. PAST MEDICAL HISTORY: 1. No history of diabetes. 2. No history of asthma or pulmonary disease. 3. No history of cardiac disease. PRIOR SURGICAL HISTORY: Noncontributory. ALLERGIES: NO KNOWN DRUG ALLERGIES. SOCIAL HISTORY: The patient is not a smoker or drinker. REVIEW OF SYSTEMS: He reports fever. There is no headache. He has no neck pain. He is not complaining of chest pain. He does have some cough and some dyspnea. He has no abdominal pain. He is having no nausea or vomiting. He reports no leg edema. PHYSICAL EXAMINATION: VITAL SIGNS: The patient is afebrile. The blood pressure is 115/80 and the saturation is 98%. The pulse is 90. HEENT: Shows no facial swelling or erythema. CARDIAC: Reveals regular rate and rhythm with normal S1 and S2. LUNGS: Auscultation of lungs reveals clear breath sounds bilaterally. There is no wheezing. ABDOMEN: Soft and nontender. There is no rebound or guarding. EXTREMITIES: Shows no leg edema or calf tenderness. There is no cyanosis or clubbing. SKIN: Shows no rashes. NEUROLOGICAL: Shows no focal abnormalities. LABORATORY DATA: White blood cell count is 8.6 and hemoglobin is 14.4. The platelet count is 154. The BUN to creatinine ratio is 15 to 0.83. The carbon dioxide is 19. Albumin is 3.0. RADIOGRAPHIC DATA: Chest x-ray shows patchy infiltrate, suggestive of viral pneumonia. IMPRESSION: 1. Viral pneumonia. 2. COVID-19 infection. PLAN: 1. Continue Tylenol as needed for temperature. 2. Low-dose fluids. 3. Zithromax. 4. Evaluate for convalescent plasma antibodies. MD ELVIN Silva/IRENA /[id number]
[2019-12-10] MEDS: CEFEPIME 2 GM/NS 0.9% 100 ML 100 ML IV SCH ×2 (12:03→19:53)
[2019-12-10] MEDS: ACETAMINOPHEN 325 MG TAB PO PRN ×2 (13:10→19:53)
[2019-12-10] MEDS ORDERED: ZINC SULFATE 220 MG CAP PO SCH (15:00)
[2019-12-10 15:50] LABS: CREATINE KINASE MB 0.9 ng/mL (0-5.0)
--- NOTE | 2019-12-10 18:32 | Consultation ---
DATE OF CONSULTATION: HISTORY OF PRESENT ILLNESS: The patient has COVID-19. This patient is a 49-year-old gentleman, who has no past medical history. He has been sick for 10 days, went to see his physician, who gave him shot. He gave him Z-Tima, cefuroxime, hydroxychloroquine, and ibuprofen as well as prednisone. I think the patient came in because he was short of breath. When he came in, his white count is 8.5, hemoglobin 14. Sodium 136, potassium 3.6, creatinine 0.85. His chest x-ray showed viral pneumonia. The patient is being admitted. PHYSICAL EXAMINATION: GENERAL: He is currently alert, oriented. VITAL SIGNS: Stable, afebrile. Temperature 100.4, heart rate 90, respirations 22, blood pressure 113/78. His O2 saturation is 97% on room air. The patient's physical examination otherwise unremarkable. HEENT: He is not icteric. NECK: Supple. CHEST: Clear. COR: S1 and S2. No S3, S4, or murmur. ABDOMEN: Soft. Bowel sounds present. No tenderness. EXTREMITIES: No edema. SKIN: No rash. IMPRESSION: Viral pneumonia, COVID-19. Continue with supportive care. We will discuss with the patient about convalescent plasma. Clinically seems to be doing well. MD KIT Larry/IRENA /[id number]
--- NOTE | 2019-12-10 19:00 | NUR ---
REPORT RECEIVED, RECEIVED PT LAYING SEMI FOWLERS IN BED, AAOX3, RR EVEN AND NON-LABORED, O2 BY NC AT 3L. PT HAS A PRODUCTIVE COUGH. LEFT PT LAYING SEMI FOWLERS IN BED, BED IN LOW LOCKED POSITION, SIDE RAILS UPX2, CALL LIGHT AND PHONE WITHIN REACH. Addendum: 12/10/19 at 1957 by Alberta Singh RN PLEASE DISREGARD NOTE.
--- NOTE | 2019-12-10 19:10 | NUR ---
RECEIVED REPORT, RECEIVED PT LAYING SEMI FOWLERS IN BED, AAOX3, RR SONAL AND NON-LABORED, ON ROOM AIR. PT REPORTS HEADACHE 04/27. DIMMED LIGHTS FOR PATIENT. LEFT PT LAYING SEMI FOWLERS IN BED, BED IN LOW LOCKED POSITION, SIDE RAILS UPX2, CALL LIGHT AND PHONE WITHIN REACH.
[2019-12-10] MEDS: SIMVASTATIN 20 MG TAB PO SCH (19:53)
--- NOTE | 2019-12-10 21:24 | History and Physical ---
CHIEF COMPLAINT: Shortness of breath. HISTORY OF PRESENT ILLNESS: Mr. Cooper is a 49-year-old gentleman with no significant medical problems in the past, who presented to the emergency room department at [facility] with a chief complaint of shortness of breath and fever, which has been going on over the course of last 2 days or so. He was evaluated by his primary care physician and was placed on medication consisting of Zithromax, zinc, and hydroxychloroquine. He did have COVID-19 test, which turned to be positive. The patient was admitted for further evaluation and treatment, and presently he has been complaining of ongoing fever. Denies abdominal pain, no nausea, no vomiting, no diarrhea. PAST MEDICAL HISTORY: He has been healthy with no significant medical problems in the past. No previous history of cardiopulmonary problems. No CHF. No COPD. No asthma. There is no history of diabetes mellitus or hypertension. FAMILY HISTORY: Noncontributory. SOCIAL HISTORY: No tobacco or alcohol abuse. ALLERGIES: NO KNOWN DRUG ALLERGIES THAT I AM AWARE. REVIEW OF SYSTEMS: CONSTITUTIONAL: Complains of fever and malaise. CARDIOVASCULAR: Denies chest pain. No swelling in the legs. No blackout spells. No PND . RESPIRATORY: Has been complaining of shortness of breath and does have some cough. Trace of dyspnea. GI: No abdominal pain. No nausea, vomiting, or diarrhea. No hematemesis or melena. GENITOURINARY: No dysuria, hematuria, or frequency. NEURO: Nonfocal. PHYSICAL EXAMINATION: GENERAL: Revealed the patient to be alert and oriented to person, time, and place. The patient was in no distress at the time of my evaluation. VITAL SIGNS: Blood pressure 143/89, respirations 20, pulse 112, and temperature 102.3. HEENT: Head is normocephalic and atraumatic. Extraocular movements are intact. NECK: Supple. No JVD. Thyroid gland was not enlarged. LUNGS: Clear to auscultation. HEART: Rate and rhythm. ABDOMEN: Soft and nontender. EXTREMITIES: No edema. NEUROLOGIC: Nonfocal. LABORATORY DATA: CBC revealed hemoglobin 14.4, white blood cell count 8.59, platelet count 154,000. Chem profile reveal sodium 136, potassium 3.6, chloride 107, CO2 19, BUN 15, and creatinine 0.83. IMAGING STUDIES: Chest x-rays, findings were consistent with history of viral pneumonia. Lungs were moderately inflated. There were peripheral predominant patchy opacities in the bilateral mid and lower lung zones. ASSESSMENT: 1. Dyspnea in the patient noted to have a chest x-ray consistent with viral pneumonia. 2. COVID-19 infection. PLAN OF CARE: Continue present care. Continue antibiotic as advised. IV fluids. Pulmonary and ID evaluation noted. MD JUANITA Robertson/MODL /[id number]
[2019-12-10 23:08] LABS: CREATINE KINASE MB 0.2 ng/mL (0-5.0)
[2019-12-11] VITALS (7 sets, daily range): BP systolic 120–135; BP diastolic 80–88
[2019-12-11] MEDS: CEFEPIME 2 GM/NS 0.9% 100 ML 100 ML IV SCH ×3 (04:38→20:15)
[2019-12-11] MEDS: ACETAMINOPHEN 325 MG TAB PO PRN ×2 (04:38→13:27)
[2019-12-11] MEDS: AZITHROMYCIN 500MG/NS 250 ML 250 ML IV SCH (05:19)
[2019-12-11 06:11] LABS: BASOPHILS % 0.2 % (0.0-1.0); EOSINOPHILS % 0.1 % (0.0-6.0); HEMATOCRIT 44.2 % (38.2-49.6); HEMOGLOBIN 14.8 g/dL (14.0-18.0); LYMPHOCYTES # (AUTO) 1.4 (1.0-3.2); LYMPHOCYTES % 15.8 % (18.0-39.1); MEAN CORPUSCULAR HEMOGLOBIN 27.9 pg (28-32); MEAN CORPUSCULAR HGB CONC 33.5 g/dL (31-35); MEAN CORPUSCULAR VOLUME 83.2 fL (81-99); MONOCYTES # (AUTO) 0.5 (0.2-0.8); MONOCYTES % 5.3 % (4.4-11.3); NEUTROPHILS # (AUTO) 6.9 (2.1-6.9); NEUTROPHILS % 77.8 % (38.7-80.0); PLATELET COUNT 153 x10e3/uL (140-360); RED BLOOD COUNT 5.31 x10e6/uL (4.3-5.7); RED CELL DISTRIBUTION WIDTH 13.3 % (11.7-14.4)
[2019-12-11 06:38] LABS: ALANINE AMINOTRANSFERASE 28 IU/L (0-55); ALBUMIN 2.8 g/dL (3.5-5.0); ALBUMIN/GLOBULIN RATIO 0.6 (0.8-2.0); ALKALINE PHOSPHATASE 71 IU/L (40-150); ANION GAP 13.1 mmol/L (8-16); BLOOD UREA NITROGEN 11 mg/dL (7-26); BUN/CREATININE RATIO 14 (6-25); CALCIUM 8.5 mg/dL (8.4-10.2); CARBON DIOXIDE 19 mmol/L (22-29); CHLORIDE 102 mmol/L (98-107); CREATININE, SERUM 0.81 mg/dL (0.72-1.25); EST GLOMERULAR FILTRATION RATE > 60 ML/MIN (60-); GLUCOSE 102 mg/dL (74-118); POTASSIUM 4.1 mmol/L (3.5-5.1); SODIUM 130 mmol/L (136-145)
--- NOTE | 2019-12-11 07:15 | NUR ---
ASSUMED CARE. AAOX3. ACYANOTIC. RESTING IN BED QUIETLY. NO DISTRESS NOTED. CALL LIGHT IN REACH. SIDERAILS UP X2. BED LOW.
[2019-12-11] MEDS: ZINC SULFATE 220 MG CAP PO SCH ×3 (09:07→20:15)
[2019-12-11 12:20] LABS: PLATELET ESTIMATE SLIGHTLY DECREASED; PLATELET MORPHOLOGY COMMENT NORMAL; RBC MORPHOLOGY COMMENT NORMAL
--- NOTE | 2019-12-11 12:36 | Progress Note ---
DATE: SUBJECTIVE: The patient still has some fevers. He still has some dyspnea. He is concerned about going home and infecting his family. OBJECTIVE: VITAL SIGNS: The blood pressure is 125/84 and saturation is 97%. HEENT: Shows no facial swelling or erythema. CARDIAC: Reveals a regular rate and rhythm with normal S1 and S2. LUNGS: Auscultation of lungs reveals rhonchus breath sounds bilaterally. There is no wheezing. ABDOMEN: Soft, nontender. There is no rebound or guarding. EXTREMITIES: Show no leg edema or calf tenderness. There is no cyanosis or clubbing. SKIN: Shows no rashes. NEUROLOGICAL: Shows no focal abnormalities. LABORATORY DATA: White blood cell count is 8.86 and hemoglobin is 14.8. The platelet count is 153. BUN to creatinine ratio is normal. Sodium is 130. Albumin is 2.8. ASSESSMENT: 1. Viral pneumonia and coronavirus disease - 19 infection. 2. Hyponatremia. PLAN: 1. Continue observation. 2. Tylenol as needed for temperature. 3. Continue Zithromax. Calvin Hargrove MD [facility]/MODL /[id number]
--- NOTE | 2019-12-11 12:47 | NUR ---
[id number] Progress note dictated
--- NOTE | 2019-12-11 13:06 | Progress Note ---
DATE: SUBJECTIVE: Discussed with Dr. Evans. Discussed with the nurse. The patient is seen and evaluated. Discussed with the nurse. Available labs and notes reviewed. REVIEW OF SYSTEMS: The patient remains with mild shortness of breath. However, he is off oxygen on room air, saturating at 97%, and he says he is ready to go home. He says he had a lot of stress last night and he feels great today. No nausea, vomiting, fever, chills, chest pain, headache, or rash. Diarrhea has improved. Shortness of breath improved. PHYSICAL EXAMINATION: VITAL SIGNS: Temperature 99.5, pulse is 109, respiration 19, blood pressure 134/83. GENERAL: Alert and oriented, no acute distress. CV: S1 and S2. CHEST: Equal expansion. No acute distress. Decreased breath sounds. ABDOMEN: Soft, nontender. No distention. HEENT: Moist. No pallor. No JVD. EXTREMITIES: Moves all. MEDICATIONS: Medication list reviewed. From Infectious Disease point of view, the patient is on Zithromax and cefepime. LABORATORY STUDIES: White count of 8.86, hemoglobin 14.8, platelet 153. Sodium 130, potassium 4.1, creatinine 0.81. Serology: Coronavirus PCR positive on 12/09. MICROBIOLOGY: Blood culture negative 24 hours on 12/10/2019. IMAGING: No new radiology studies available. ASSESSMENT AND PLAN: 1. Positive COVID-19. 2. Viral pneumonia. 3. Overall, feels much better. Antibiotics as above, the patient wants to go home, remains on room air with no complications. Okay to discharge. From ID point of view, the patient needs to quarantine if discharge. Please refer to chart for more information. Discussed with Dr. Evans in details. MD KIT Larry/IRENA /[id number]
--- NOTE | 2019-12-11 13:22 | Progress Note ---
DATE: 12/11/2019 SUBJECTIVE: The patient was seen on December 11, 2019. The patient has complained of headache. He denies shortness of breath. No fever at this time. No nausea or vomiting. No abdominal pain. Concerned about going home, exposing his children to COVID-19. OBJECTIVE: GENERAL: The patient is alert and oriented to person, time, place. VITAL SIGNS: T-max 101.1, blood pressure 135/84, pulse 109, pulse oximeter 97% room air, respirations 18. HEENT: Head normocephalic, atraumatic. NECK: Supple. No JVD. LUNGS: Clear to auscultation. HEART: Regular rate and rhythm. ABDOMEN: Soft and nontender. EXTREMITIES: No edema. NEURO: Nonfocal. LABORATORY DATA: CBC revealed platelet count 153,000. Chem profile reveals sodium 130, potassium 4.1, chloride 102, CO2 of 19, BUN 11, creatinine 0.81, albumin level of 2.8, bilirubin 4.5. ASSESSMENT: 1. Viral pneumonia. 2. COVID-19 infection. 3. Obesity. PLAN OF CARE: Continue present care. ID is following the patient and presently, the patient on cefepime, azithromycin, zinc sulfate, and simvastatin. He does have a history of hyperlipidemia. He is on IV fluids. The patient has low sodium and has hyponatremia. MD JUANITA Robertson/IRENA /[id number] MTDD
--- NOTE | 2019-12-11 19:10 | NUR ---
PT AWAKE ALERT, AOX3, RA NON LABORED RESPIRATIONS, REMAINS ON DROPLET PRECAUTIONS
--- NOTE | 2019-12-11 19:21 | NUR ---
BSSR RECEIVED FROM RN AMELIE, PATIENT C/O MIGRAINE KEENAN, TYLENOL GIVEN TWICE WITH NO RELIEF, REQUESTING MEDICATION FOR MIGRAINE, MD MCCARTHY PAGED VIA ANSWERING SERVICE AWAITING CALL BACK , IV PATENT C/D/I FLUSHES W/O DIFFICULTY, CALL LIGHT WITHIN REACH, SKIN WARM DRY, NO SOB NOTED
[2019-12-11] MEDS: SIMVASTATIN 20 MG TAB PO SCH (20:15)
[2019-12-11] MEDS: ACETAMIN/BUTALBITAL/CAFFEINE TAB PO PRN (22:08)
[2019-12-12] VITALS (7 sets, daily range): BP systolic 112–130; BP diastolic 80–92
[2019-12-12] MEDS: ACETAMIN/BUTALBITAL/CAFFEINE TAB PO PRN (03:22)
[2019-12-12] MEDS: CEFEPIME 2 GM/NS 0.9% 100 ML 100 ML IV SCH ×2 (04:28→13:00)
[2019-12-12] MEDS: ACETAMINOPHEN 325 MG TAB PO PRN ×2 (04:30→08:48)
--- NOTE | 2019-12-12 05:00 | NUR ---
PATIENT C/O NAUSEA/VOMITING, MILD TEMP, GIVEN TYLENOL AND PRN PO MIGRAINE MEDICATION WITH GOOD RELIEF
[2019-12-12] MEDS: AZITHROMYCIN 500MG/NS 250 ML 250 ML IV SCH (05:12)
--- NOTE | 2019-12-12 06:48 | NUR ---
BSSR GIVEN TO ONCOMING SHIFT RN, UPDATED WITH PLAN OF CARE, NO DISTRESS NOTED, CALL LIGHT WITHIN REACH
[2019-12-12] MEDS: ZINC SULFATE 220 MG CAP PO SCH (08:08)
--- NOTE | 2019-12-12 11:54 | Progress Note ---
DATE: SUBJECTIVE: Mr. Theodore is feeling better. Remains running with fever. T-max 102.2, but he said he is feeling really good. He would like to go home. REVIEW OF SYSTEMS: HEENT: Negative. PULMONARY: Negative. CARDIAC: Negative. PHYSICAL EXAMINATION: GENERAL: He is currently alert and oriented. Does not seem to be in acute distress. VITAL SIGNS: Stable, currently fever. HEENT: Not icteric. NECK: Supple. CHEST: Clear. HEART: S1 and S2. No S3, S4, or murmurs. ABDOMEN: Soft. Bowel sounds present. No tenderness. EXTREMITIES: No edema. IMPRESSION: COVID-19, could be discharge home if clinically doing better. To use Tylenol for fever, change to push p.o. fluid. To see me in 2 weeks. MD KIT Larry/IRENA /[id number]
--- NOTE | 2019-12-12 13:32 | NUR ---
Discharge summary dictated
--- NOTE | 2019-12-12 14:30 | NUR ---
patient discharged. IV access removed- bleeding controlled and dressing applied. telemetry box removed and returned. patient given discharge instructions and is aware of quarantine requirements. patient aware of follow up appts to be made in 2 weeks. patient denied any questions and was wheeled off unit in stable condition to personal vehicle.
--- NOTE | 2019-12-12 15:00 | Progress Note ---
DATE: SUBJECTIVE: The patient feels better. He has less dyspnea and less cough. He is eager to go home. PHYSICAL EXAMINATION: VITAL SIGNS: The patient is afebrile, but had a temperature of a 102 orally this morning, blood pressure is 122/85, and saturation is 95%. HEENT: No facial swelling or erythema. CARDIAC: Regular rate and rhythm with normal S1, S2. LUNGS: Auscultation of lungs reveals rhonchorous breath sounds bilaterally. There is no wheezing. ABDOMEN: Soft, nontender. There is no rebound or guarding. EXTREMITIES: No leg edema or calf tenderness. There is no cyanosis or clubbing. SKIN: No rashes. NEUROLOGICAL: No focal abnormalities. IMPRESSION: 1. Coronavirus disease-19 infection. 2. Viral pneumonia. 3. Hyponatremia. PLAN: 1. Discharge home. 2. Follow up in 1-2 weeks for repeat COVID-19 testing. 3. Tylenol and fluids as needed. Calvin Hargrove MD [facility]/MODL /[id number]
--- NOTE | 2019-12-12 17:06 | Discharge Summary ---
FINAL DIAGNOSES: 1. Viral pneumonia. 2. Positive COVID-19. 3. Hyperlipidemia. HOSPITAL COURSE: This 49-year-old gentleman, who has been under my service, complaining of shortness of breath. The patient has been evaluated by his primary care physician and COVID was performed and sent to [facility], which turned to be positive and patient in view of shortness of breath, presented to the Emergency Department for further evaluation and treatment. He had been placed on hydroxychloroquine and Zithromax along with zinc and was doing relatively well. However, in view of increased shortness of breath, presented to the hospital and empirically was placed on intravenous antibiotics consisting of azithromycin and Rocephin. The patient did well, was evaluated by Dr. Thomas, channeler. Currently, discharged from the hospital in stable condition. The patient also have a history of hyperlipidemia. DIET: Low-fat diet. ACTIVITY LEVEL: As tolerated. CONDITION AT TIME OF DISCHARGE: Stable. MEDICATIONS: Per reconciliation list. Per ID, not to resume hydroxychloroquine at this time. No antibiotics. Continue zinc otherwise. Continue also taking lower lipid agents. self quarantine has been advised for two weeks. Avoid contacts. Not to return to work yet. MD JUANITA Robertson/IRENA /[id number]
== END 2019-12-12 15:20 | disposition home or self-care (01) | DRG 177 ==
LOC: ER 02:32 → ERHOLD 05:34 → IMCU 05:49
PROVIDERS: ADMIT Internal Medicine; ATTEND Internal Medicine
DX: U07.1 COVID-19 (principal); J12.9 Viral pneumonia, unspecified; E87.1 Hypo-osmolality and hyponatremia; E78.5 Hyperlipidemia, unspecified; E66.9 Obesity, unspecified; Z68.34 Body mass index [BMI] 34.0-34.9, adult
CPT/HCPCS: 36415; 71045; 80053; 82550; 82553; 83605; 84484; 85025; 87040; 87635; 93005; 99284; J0456; J3370; J7030

== ENCOUNTER 2019-12-13 08:47 | Inpatient (IN) | payer OTHER ==
[~2019-12-13] VITALS: Ht 170.2 cm; Wt 100.2 kg
[~2019-12-13 08:47] MED LIST changes: +ADVIL200 MG PO; +AZITHROMYCIN250 MG PO; +CEFUROXIME250 MG PO; +HYDROXYCHLOROQ200 MG PO; +PREDNISONE20 MG PO; +ZINC SULFATE220 M1 PO
[2019-12-13] MEDS ORDERED: SODIUM CHLORIDE 0.9% 1000ML 2,000 ML ONE (09:21)
[2019-12-13 09:32] LABS: BASOPHILS % 0.2 % (0.0-1.0); EOSINOPHILS % 0.1 % (0.0-6.0); HEMATOCRIT 47.1 % (38.2-49.6); HEMOGLOBIN 16.2 g/dL (14.0-18.0); LYMPHOCYTES # (AUTO) 1.8 (1.0-3.2); LYMPHOCYTES % 22.1 % (18.0-39.1); MEAN CORPUSCULAR HEMOGLOBIN 28.4 pg (28-32); MEAN CORPUSCULAR HGB CONC 34.4 g/dL (31-35); MEAN CORPUSCULAR VOLUME 82.6 fL (81-99); MONOCYTES # (AUTO) 0.5 (0.2-0.8); MONOCYTES % 5.8 % (4.4-11.3); NEUTROPHILS # (AUTO) 5.9 (2.1-6.9); NEUTROPHILS % 71.2 % (38.7-80.0); PLATELET COUNT 210 x10e3/uL (140-360); RED CELL DISTRIBUTION WIDTH 13.5 % (11.7-14.4)
[2019-12-13] MEDS ORDERED: ACETAMINOPHEN 325 MG TAB PO STA (09:38)
[2019-12-13 09:58] LABS: ALANINE AMINOTRANSFERASE 73 IU/L (0-55); ALBUMIN 2.7 g/dL (3.5-5.0); ALBUMIN/GLOBULIN RATIO 0.5 (0.8-2.0); ALKALINE PHOSPHATASE 102 IU/L (40-150); ANION GAP 17.2 mmol/L (8-16); BLOOD UREA NITROGEN 11 mg/dL (7-26); BUN/CREATININE RATIO 12 (6-25); CALCIUM 9.2 mg/dL (8.4-10.2); CARBON DIOXIDE 18 mmol/L (22-29); CHLORIDE 101 mmol/L (98-107); CREATINE KINASE 57 IU/L (30-200); CREATININE, SERUM 0.95 mg/dL (0.72-1.25); EST GLOMERULAR FILTRATION RATE > 60 ML/MIN (60-); GLUCOSE 103 mg/dL (74-118); POTASSIUM 4.2 mmol/L (3.5-5.1); SODIUM 132 mmol/L (136-145)
[2019-12-13] MEDS ORDERED: SODIUM CHLORIDE 0.9% 1000ML 2,000 ML IV ONE (10:00)
[2019-12-13] MEDS ORDERED: ALBUTEROL SULFATE HFA 8GM INHALATION AEROSOL INH STA (10:19)
[2019-12-13] MEDS ORDERED: AZITHROMYCIN 500MG/NS 250 ML 250 ML IV STA (10:28)
--- NOTE | 2019-12-13 10:28 | Diagnostic Imaging Report ---
EXAMINATION: CHEST SINGLE (PORTABLE) INDICATION: Shortness of breath COMPARISON: Chest radiograph 12/10/2019 FINDINGS: LINES/TUBES:EKG leads overlie the chest. LUNGS:The lung volumes are low. Increasing bilateral airspace opacities. PLEURA:No pleural effusion or pneumothorax. MEDIASTINUM:The cardiomediastinal silhouette appears normal in size and shape. BONES/SOFT TISSUES:No acute osseous injury. ABDOMEN:No free air under the diaphragm. IMPRESSION: Interval increase in bilateral airspace opacity, concerning for multifocal pneumonia. Signed by: Donis Johnson MD on 12/13/2019 10:24 AM
[2019-12-13] MEDS ORDERED: METHYLPREDNISOLONE SOD SUCC 125 MG/2ML VIAL IV ONE (10:30)
[2019-12-13] MEDS ORDERED: CEFTRIAXONE SOD 1 GM/NS 50 ML 50 ML IV ONE (10:30)
--- NOTE | 2019-12-13 10:39 | Emergency Department Note ---
History of Present Illnes History of Present Illness Chief Complaint: increased sob History of Present Illness This is a 49 year old male. d/sreekanth from this hospital 1 day ago dx covid 19. then sob got worse(wheezing). +f/c Historian: Patient, Still Runner/EMS Arrival Mode: [place] History limited by: condition of the patient (stable) Drawing Frame Tender Required: No Onset (how long ago): day(s) (1) Location: n/a Quality: moderate Radiation: non-radiation Severity: moderate Onset quality: gradual Timing of current episode: constant Progression: worsening Chronicity: recurrent Context: recent illness, recent surgery, recent immobilization, recent travel, trauma/injury, new medications, hx of DVT/PE, non-compliance w/ medications Relieving factors: rest Exacerbating factors: movement Associated symptoms: cough, fever/chills, malaise, shortness of breath Treatments prior to arrival: none Past Medical/Family History Physician Review I have reviewed the patient's past medical and family history. Any updates have been documented here. Past Medical History Recent Fever: Yes Clinical Suspicion of Infectio: No New/Unexplained Change in Ment: No Past Medical History: Kidney Stones, Hyperlipedemia Other Medical History: Cholesterol Other Surgery: LITHOTRIPSY Social History Smoking Cessation: Never Smoker Alcohol Use: Occasional Any Illegal Drug Use: No TB Exposure/Symptoms: No Physically hurt or threatened: No Other Last Tetanus: UTD Any Pre-Existing Lines (PICC,: No Is patient up to date on immun: Yes Last Flu: UTD Last Pneumovax: none Review of Systems Review of Systems Constitutional: no symptoms EENTM: no symptoms Cardiovascular: no symptoms Respiratory: as per HPI, cough, dyspnea, wheezing Gastrointestinal: no symptoms Genitourinary: no symptoms Musculoskeletal: no symptoms Neurological: no symptoms Psychological: no symptoms Endocrine: no symptoms Hematological/Lymphatic: no symptoms Review of other systems All other systems reviewed and negative. Physical Exam Related Data Allergies: Coded Allergies: No Known Allergies (Unverified , 02/22/18) Triage Vital Signs Vital Signs Date Time Temp Pulse Resp B/P (MAP) Pulse Ox O2 Delivery O2 Flow Rate FiO2 12/13/19 09:03 102.0 119 33 132/96 96 Vital signs reviewed: Yes Physical Exam CONSTITUTIONAL Constitutional: well-developed, well-nourished HENT HENT: normocephalic, atraumatic, oropharynx clear/moist, nose normal HENT L/R: left ext ear normal, right ext ear normal EYES Eyes: PERRL, conjunctivae normal NECK Neck: ROM normal PULMONARY Pulmonary: effort normal, other (bilateral wheezes) CARDIOVASCULAR Cardiovascular: regular rhythm, heart sounds normal, capillary refill normal, normal rate GASTROINTESTINAL Abdominal: soft, nontender, bowel sounds normal GENITOURINARY Genitourinary: exam deferred SKIN Skin: warm, dry MUSCULOSKELETAL Musculoskeletal: ROM normal NEUROLOGICAL Neurological: alert, oriented x 3, no gross motor or sensory deficits PSYCHOLOGICAL Psychological: mood/affect normal, judgement normal Results Laboratory Result Diagram: 12/13/1908 12/13/19 0908 Laboratory Laboratory Tests Test 12/13/19 09:08 12/13/19 09:00 White Blood Count 8.33 x10e3/uL (4.8-10.8) Red Blood Count 5.70 x10e6/uL (4.3-5.7) Hemoglobin 16.2 g/dL (14.0-18.0) Hematocrit 47.1 % (38.2-49.6) Mean Corpuscular Volume 82.6 fL (81-99) Mean Corpuscular Hemoglobin 28.4 pg (28-32) Mean Corpuscular Hemoglobin Concent 34.4 g/dL (31-35) Red Cell Distribution Width 13.5 % (11.7-14.4) Platelet Count 210 x10e3/uL (140-360) Neutrophils (%) (Auto) 71.2 % (38.7-80.0) Lymphocytes (%) (Auto) 22.1 % (18.0-39.1) Monocytes (%) (Auto) 5.8 % (4.4-11.3) Eosinophils (%) (Auto) 0.1 % (0.0-6.0) Basophils (%) (Auto) 0.2 % (0.0-1.0) Neutrophils # (Auto) 5.9 (2.1-6.9) Lymphocytes # (Auto) 1.8 (1.0-3.2) Monocytes # (Auto) 0.5 (0.2-0.8) Eosinophils # (Auto) 0.0 (0.0-0.4) Basophils # (Auto) 0.0 (0.0-0.1) Absolute Immature Granulocyte (auto 0.05 x10e3/uL (0-0.1) Sodium Level 132 mmol/L (136-145) Potassium Level 4.2 mmol/L (3.5-5.1) Chloride Level 101 mmol/L (98-107) Carbon Dioxide Level 18 mmol/L (22-29) Anion Gap 17.2 mmol/L (8-16) Blood Urea Nitrogen 11 mg/dL (7-26) Creatinine 0.95 mg/dL (0.72-1.25) Estimat Glomerular Filtration Rate > 60 ML/MIN (60-) BUN/Creatinine Ratio 12 (6-25) Glucose Level 103 mg/dL (74-118) Lactic Acid Level 1.4 mmol/L (0.5-2.0) Calcium Level 9.2 mg/dL (8.4-10.2) Total Bilirubin 0.5 mg/dL (0.2-1.2) Aspartate Amino Transf (AST/SGOT) 76 IU/L (5-34) Alanine Aminotransferase (ALT/SGPT) 73 IU/L (0-55) Alkaline Phosphatase 102 IU/L (40-150) Creatine Kinase 57 IU/L (30-200) Troponin I < 0.001 ng/mL (0-0.300) B-Type Natriuretic Peptide < 10.0 pg/mL (0-100) Total Protein 8.6 g/dL (6.5-8.1) Albumin 2.7 g/dL (3.5-5.0) Globulin 5.9 g/dL (2.3-3.5) Albumin/Globulin Ratio 0.5 (0.8-2.0) Lab results reviewed: Yes Imaging Imaging results reviewed: Yes (cxr= multifocal pneumonia) Diagnostics Tests Diagnostic test(s) reviewed: Yes (ekg= sinus tachycardia, lpfb, normal st segments/twaves, normal axis, hr= 125) Critical Care Time Subsequent provider I assumed direction of critical care for this patient from another provider of my specialty. Assessment & Plan Reassessment Reassessment spoke to dr farnsworth at 1110hrs and accepts admission of pt. spoke to dr vijaya mckeon (pulmonolgist) at 1120hrs and will see pt Assessment & Plan Final Impression: (1) Reactive airway disease (2) Multifocal pneumonia (3) COVID-19 (4) Hyponatremia (5) Metabolic acidosis Assessment & Plan spoke to dr farnsworth at 1110hrs and accepts admission of pt. spoke to dr vijaya mckeon (pulmonolgist) at 1120hrs and will see pt Depart Disposition: ADMITTED Last Vital Signs Date Time Temp Pulse Resp B/P (MAP) Pulse Ox O2 Delivery O2 Flow Rate FiO2 12/13/19 09:48 114 28 141/91 98 12/13/19 09:03 102.0 Home Meds Reported Medications Zinc Sulfate (ZINC SULFATE) 220 Mg Capsule, 50 MG PO TID 12/10/19 Rosuvastatin Calcium (CRESTOR) 10 Mg Tab, 10 MG PO DAILY THERAPEUTICALLY SUBSTITUTED WITH SIMVASTATIN 40MG 02/24/17 Discontinued Reported Medications Hydroxychloroquine Sulfate (HYDROXYCHLOROQUINE SULFATE) 200 Mg Tablet, 200 MG PO BID 12/10/19 Azithromycin (Z-BRUNA) 250 Mg Tablet, 500 MG PO DAILY, #1 UDPKT Z-Pack 12/10/19 Ibuprofen (ADVIL) 200 Mg Tablet, 400 MG PO Q4H PRN for ELEVATED TEMPERATURE 12/10/19 Cefuroxime Axetil (CEFUROXIME) 250 Mg Tablet, 500 MG PO Q12H, TAB 12/10/19 Prednisone (PREDNISONE) 20 Mg Tab, 20 MG PO DAILY, #30 TAB 12/10/19 Medications in the ED Sodium Chloride 2,000 ml @ ud STK-MED ONCE .ROUTE ; Start 12/13/19 at 09:21; Stop 12/13/19 at 09:16; Status DC Acetaminophen 975 mg ONCE STAT PO Last administered on 12/13/19at 09:47; Admin Dose 975 MG; Start 12/13/19 at 09:38; Stop 12/13/19 at 09:39; Status DC Sodium Chloride 2,000 ml @ 999 mls/hr ONCE ONCE IV Last administered on 12/13/19at 10:03; Admin Dose 999 MLS/HR; Start 12/13/19 at 10:00; Stop 12/13/19 at 12:00 Methylprednisolone Sodium Succinate 125 mg ONCE ONCE IV ; Start 12/13/19 at 10:30; Stop 12/13/19 at 10:31; Status DC Ceftriaxone Sodium 50 ml @ 100 mls/hr ONCE ONCE IV ; Start 12/13/19 at 10:30; Stop 12/13/19 at 10:59 Azithromycin 250 ml @ 250 mls/hr NOW STAT IV ; Start 12/13/19 at 10:28; Stop 12/13/19 at 11:27 Albuterol 2 gm ONCE STAT INH ; Start 12/13/19 at 10:19; Stop 12/13/19 at 10:22; Status DC SARAY STODDARD December 13, 2019 10:38
[2019-12-13] MEDS ORDERED: ONDANSETRON HCL INJ 2MG/ML 2ML 2 MG/ML VIAL IV PRN (10:45)
[2019-12-13] MEDS ORDERED: ALBUTEROL/IPRATROPIUM 3 ML NEB NEB PRN (10:45)
[2019-12-13] MEDS ORDERED: ALBUTEROL/IPRATROPIUM 3 ML NEB NEB SCH ×2 (11:00→13:00)
[2019-12-13 11:29] LABS: ABG PCO2 30 mmHg (35-45)
[2019-12-13 11:30] LABS: ABG HCO3 18 mmol/L (22-26)
--- NOTE | 2019-12-13 11:33 | NUR ---
CONSULT ISTORY OF PRESENT ILLNESS: The patient has COVID-19. This patient is a 49-year-old gentleman, who has no past medical history. He has been sick for 10 days, went to see his physician, who gave him shot. He gave him Z-Tima, cefuroxime, hydroxychloroquine, and ibuprofen as well as prednisone. patient came in because he was short of breath. When he came in, his white count is 8.5, hemoglobin 14. Sodium 136, potassium 3.6, creatinine 0.85. His chest x-ray showed viral pneumonia. The patient is being admitted. WAS FOR FEW DAYS improved discharged home yesterday came michael This is a 49 year old male. d/sreekanth from this hospital 1 day ago dx covid 19. then sob got worse(wheezing). +f/c Historian: Patient, Employment Law Attorney/EMS Arrival Mode: [place] History limited by: condition of the patient (stable) Mission Analyst Required: No Onset (how long ago): day(s) (1) Location: n/a Quality: moderate Radiation: non-radiation Severity: moderate Onset quality: gradual Timing of current episode: constant Progression: worsening Chronicity: recurrent Context: recent illness, recent surgery, recent immobilization, recent travel, trauma/injury, new medications, hx of DVT/PE, non-compliance w/ medications Relieving factors: rest Exacerbating factors: movement Associated symptoms: cough, fever/chills, malaise, shortness of breath Treatments prior to arrival: none [id number]
--- NOTE | 2019-12-13 11:56 | NUR ---
Recvd patient from ER. AAOx3, C/O SOB, Connected with O2 2LNC, HOB elevated to 30 degree, droplet isolation precaution maintained,call light in reach, keep monitoring
[2019-12-13 11:59] LABS: CLARITY,URINE CLEAR (CLEAR); COLOR,URINE YELLOW (YELLOW); LEUKOCYTE ESTERASE ,URINE NEGATIVE (NEGATIVE); NITRITE,URINE NEGATIVE (NEGATIVE); PROTEIN,URINE DIPSTICK 2+ (NEGATIVE)
[2019-12-13 12:00] VITALS: BP 115/77
[2019-12-13 12:00] LABS: BILIRUBIN,URINE NEGATIVE (NEGATIVE); KETONES,URINE 2+ (NEGATIVE); URINE UROBILINOGEN 0.2 mg/dL (0.2 - 1)
[2019-12-13] MEDS ORDERED: IPRATROPIUM/ALBUTEROL SULFATE 4 GM INH INH SCH ×2 (12:00→13:00)
[2019-12-13 12:08] LABS: RBC,URINE 0-5 /HPF (0-5); WBC,URINE (MAN) 0-5 /HPF (0-5)
[2019-12-13 12:09] LABS: BACTERIA,URINE FEW /HPF; EPITHELIAL CELLS,URINE FEW /LPF
[2019-12-13] MEDS: SODIUM CHLORIDE 0.9% 1000ML 1,000 ML IV SCH (12:16)
[2019-12-13 12:24] VITALS: BP 115/77
[2019-12-13] MEDS: VANCOMYCIN 1GM/NS 250 ML 250 ML IV SCH ×2 (13:40→21:00)
--- NOTE | 2019-12-13 13:50 | NUR ---
History and Physical [id number] Thanks.
[2019-12-13] MEDS ORDERED: CEFEPIME HCL 1 GM VIAL IV SCH (14:00)
[2019-12-13 15:55] VITALS: BP 122/86
[2019-12-13] MEDS: CEFEPIME 1GM/NS 0.9% 50 ML 50 ML IV SCH ×2 (17:19→22:57)
[2019-12-13] MEDS: ENOXAPARIN SOD INJ 40 MG/0.4 ML SYR SC SCH (17:56)
[2019-12-13] MEDS ORDERED: METHYLPREDNISOLONE SOD SUCC 125 MG/2ML VIAL IV SCH (18:00)
--- NOTE | 2019-12-13 19:02 | Consultation ---
DATE OF CONSULTATION: Pulmonary Critical Care consultation. CHIEF COMPLAINT: Recurrent wheezing and cough. HISTORY OF PRESENT ILLNESS: The patient is a 49-year-old man. He developed fever and cough about 10 days ago. He was treated as an outpatient with hydroxychloroquine and azithromycin. He had a COVDI-19 test that was positive. Five days later, he worsened and came to the hospital. He stayed at [facility] for about 2 to 3 days before being discharged yesterday. He now returns and complains of increased dyspnea. He has some wheezing and some cough. He does not have fever. He received some steroids in the emergency department and notes some improvement. PAST MEDICAL HISTORY: 1. No prior history of asthma or pulmonary disease. 2. COVID-19 infection. 3. Cardiac history. PAST SURGICAL HISTORY: Noncontributory. ALLERGIES: NO KNOWN DRUG ALLERGIES. SOCIAL HISTORY: The patient is not a smoker or drinker. REVIEW OF SYSTEMS: The patient had fevers previously, but is not having fevers now. He is not having headache. He has no chest pain. He is having some coughing and wheezing. He reports some shortness of breath. He has no abdominal pain. He has no rebound or guarding. He has no leg edema. PHYSICAL EXAMINATION: VITAL SIGNS: The blood pressure is 141/91, saturation is 98% on 2 L, and the pulse is 96. HEENT: Shows no facial swelling or erythema. CARDIAC: Reveals regular rate and rhythm with normal S1, S2. There are no murmurs or rubs heard. LUNGS: Auscultation of lungs reveals a few wheezes bilaterally. There is a prolonged expiratory phase. ABDOMEN: Soft and nontender. There is no rebound or guarding. EXTREMITIES: Show no leg edema or calf tenderness. There is no cyanosis or clubbing. SKIN: Shows no rashes. NEUROLOGICAL: Shows no focal abnormalities. RADIOGRAPHIC DATA: Chest x-ray shows bilateral airspace opacities. LABORATORY DATA: White blood cell count is 8.3 and hemoglobin is 16.2. The platelet count is 210. BUN to creatinine ratio is normal. The carbon dioxide is 18. The AST is 76 and the ALT is 73. Albumin is 2.7. IMPRESSION: 1. Viral pneumonia and COVID-19 infection. 2. Bronchospasm and wheezing. 3. Elevated AST and ALT. 4. Hypoalbuminemia. 5. Metabolic acidosis. PLAN: 1. The patient will receive bronchodilators. 2. Infectious Disease will begin antibiotics for possible superimposed pneumonia. 3. The patient to receive convalescent plasma antibodies. 4. Continue Tylenol as needed. MD ELVIN Silva/IRENA /[id number]
--- NOTE | 2019-12-13 19:10 | NUR ---
Received the patient in report.lyeing in the bed.has shortness of breath.o2 nasal cannula 3 litre on flow.stable condition.
--- NOTE | 2019-12-13 19:57 | History and Physical ---
This is coverage for Dr. Wenceslao Le. PRIMARY CARE DOCTOR: Guille Oden MD. CHIEF COMPLAINT: Shortness of breath. HISTORY OF PRESENT ILLNESS: Mr. Theodore is a pleasant 49-year-old gentleman with shortness of breath. The patient well known to hospital staff. The patient presented on December 10, 2019. The patient has symptoms that began on roughly December 03, 2019. The patient has had malaise and fevers throughout the majority of this time. The patient was diagnosed with COVID-19 outside the hospital. The patient had some initial treatment with primary care doctor, but continued to worsen. For that reason, he came to emergency room. Chest x-ray with only scant infiltrates noted. The patient was hospitalized from December 09 to December 12, 2019, but he elected to go home. However, he had resurgence of wheezing and therefore he came back to the hospital today. Chest x-ray with continued mild progression of chest x-ray infiltrates. The patient was 102 Fahrenheit temperature in the emergency room. Heart rate 119. He was admitted. ABG 7.40/30/18 bicarbonate. LFTs mildly increased with AST 76 and ALT 73, creatinine 0.95. PAST MEDICAL HISTORY: No previous medical history in the past. MEDICATIONS: Medication list reviewed per the chart record. ALLERGIES: NO KNOWN DRUG ALLERGIES. SOCIAL HISTORY: No smoking. No drinking. No drugs. The patient works as a spot welder. FAMILY HISTORY: Noncontributory. REVIEW OF SYSTEMS: GENERAL: No weight changes. OPHTHALMOLOGIC: No double vision. ENT: No mouth ulcers. PULMONARY: No asthma. CARDIAC: No heart attack. GI: No constipation. : No blood in the urine. DERMATOLOGIC: No rash. NEUROLOGIC: No seizures. PSYCHIATRIC: No depression. OBJECTIVE: VITAL SIGNS: Now afebrile after initial fever. Mildly improved heart rate to 96 beats per minute. Vital signs reviewed per the chart record. GENERAL: No acute distress. Looks slightly pale, but talking in bed. HEENT: Normocephalic, atraumatic. NECK: Supple. Throat midline. LUNGS: Bilateral air entry, rare crackles. CARDIOVASCULAR: S1, S2. No murmurs, rubs, or gallops. ABDOMINAL: Soft, nontender. EXTREMITIES: No clubbing. No cyanosis. No edema. INTEGUMENT: No rash. No purpura. LABORATORY DATA: Labs reviewed per the chart record. 3.0 albumin recently. LFTs mildly increased as stated. IMPRESSION AND PLAN: 1. COVID-19 pneumonitis. 2. Mild obesity. 3. Hyponatremia. 4. Elevated LFTs. 5. Viral pneumonia. 6. Tachycardia, systemic inflammatory response syndrome. 7. Oral diet. Supportive care. Pulmonary consult, Dr. Hargrove to have some initial steroids. The patient will have DVT prophylaxis. Supportive care. Hopefully home soon. He has been sick for 11 days, so hopefully he should be getting better. Repeat LFTs intermittently. Repeat chest x-ray intermittently likely as outpatient. Thank you very much, Dr. Oden, for allowing me a chance to participate in care of Mr. Theodore. Please call for questions. This is coverage for Dr. Le. MD MILES Jackson/IRENA /[id number]
[2019-12-13 20:00] VITALS: BP 131/87
[2019-12-13 20:22] VITALS: BP 131/87
[2019-12-13] MEDS: METHYLPREDNISOLONE SOD SUCC 40 MG/ML VIAL 1ML IV SCH (20:34)
--- NOTE | 2019-12-13 21:07 | History and Physical ---
HISTORY OF PRESENT ILLNESS: Mr. Theodore is a very pleasant 49-year-old. He was just recently in the hospital. He was diagnosed with COVID-19. He did well, was discharged home. The patient has no past medical history. He received azithromycin and Rocephin. His primary care physician before he came to the hospital had given him hydroxychloroquine, ibuprofen as well as prednisone. As mentioned above, when he came to my care last admission, we stopped all that and we just gave him Rocephin and azithromycin. The patient did improve, was sent home. He came the next day because he tells me when he got home he started became shortness of breath, had to come to the hospital. The patient is being admitted. PAST MEDICAL HISTORY: Otherwise denies. PAST SURGICAL HISTORY: Denies. ALLERGIES: NKA. SOCIAL HISTORY: There is no smoking, drug abuse, or alcohol abuse. FAMILY HISTORY: Otherwise unremarkable. REVIEW OF SYSTEMS: HEENT: Negative. PULMONARY: As above. : Negative. GI: Negative. The patient was admitted. LABORATORY DATA: White count 8.33, hemoglobin 16, and hematocrit 47. Back in December 12, his COVID-19 was positive. His chest x-ray reviewed. It showed there is increase in bilateral airspace opacity. PHYSICAL EXAMINATION: GENERAL: Currently alert, oriented. VITAL SIGNS: Stable. T-max 102. HEENT: Not icteric. NECK: Supple. CHEST: Crackles bilaterally. COR: S1-S2. No murmur. ABDOMEN: Soft. IMPRESSION: 1. I am concerned about bacterial pneumonia superimposing a viral pneumonia. We will put him on vancomycin and cefepime since he was recently in the hospital with vancomycin 1 g q.12h, cefepime 1 g IV q.8. 2. We will put the patient on Lovenox 40 mg subcu q.12 hours. 3. We will concern that he is slightly getting worse. I offered him the convalescent plasma. He agreed. He knows it is a second ride fare collector study. We will get the consent as per protocol. 4. Oxygen as needed. 5. We will follow. MD KIT Larry/MODL /[id number]
[2019-12-13] MEDS: IPRATROPIUM/ALBUTEROL SULFATE 4 GM INH INH SCH (23:00)
--- NOTE | 2019-12-13 23:00 | NUR ---
Assessment done.no resp.distress.consent signed for plasma transfusion.has taken breathing treatment self.no pain voiced.bed locked and in lowest position.phone and call light within reach.instructed to call for assistance as needed.
[2019-12-14] VITALS (8 sets, daily range): BP systolic 130–156; BP diastolic 84–96
--- NOTE | 2019-12-14 00:44 | NUR ---
V/s stable.first unit of plasma transfusion started after verify with another rn.
--- NOTE | 2019-12-14 01:20 | NUR ---
First unit of plasma transfusion completed.patient tolerated well.
--- NOTE | 2019-12-14 01:45 | NUR ---
SECOND UNIT OF PLASMA TRANSFUSIONS STARTED AFTER VERIFY WITH CHARGE NURSE.V/S STABLE.
--- NOTE | 2019-12-14 02:30 | NUR ---
Second unit of plasma transfusions completed.pt tolerated well. no transfusion reactions noted.
[2019-12-14] MEDS: SODIUM CHLORIDE 0.9% 1000ML 1,000 ML IV SCH ×2 (02:45→06:28)
[2019-12-14] MEDS: IPRATROPIUM/ALBUTEROL SULFATE 4 GM INH INH SCH ×2 (02:53→23:00)
--- NOTE | 2019-12-14 06:00 | NUR ---
BLOOD GARRISON AND SENT TO THE LAB.PT TOLERATED WELL.HAD A SMALL BOWEL MOVEMENT.
[2019-12-14 06:01] LABS: BASOPHILS % 0.2 % (0.0-1.0); HEMATOCRIT 42.3 % (38.2-49.6); HEMOGLOBIN 14.3 g/dL (14.0-18.0); LYMPHOCYTES # (AUTO) 1.3 (1.0-3.2); LYMPHOCYTES % 10.3 % (18.0-39.1); MEAN CORPUSCULAR HEMOGLOBIN 28.2 pg (28-32); MEAN CORPUSCULAR HGB CONC 33.8 g/dL (31-35); MEAN CORPUSCULAR VOLUME 83.4 fL (81-99); MONOCYTES # (AUTO) 0.4 (0.2-0.8); MONOCYTES % 3.1 % (4.4-11.3); NEUTROPHILS % 85.9 % (38.7-80.0); PLATELET COUNT 198 x10e3/uL (140-360); RED BLOOD COUNT 5.07 x10e6/uL (4.3-5.7); RED CELL DISTRIBUTION WIDTH 13.6 % (11.7-14.4)
[2019-12-14] MEDS: CEFEPIME 1GM/NS 0.9% 50 ML 50 ML IV SCH ×3 (06:10→22:43)
[2019-12-14 06:24] LABS: ALANINE AMINOTRANSFERASE 131 IU/L (0-55); ALBUMIN 2.6 g/dL (3.5-5.0); ALBUMIN/GLOBULIN RATIO 0.5 (0.8-2.0); ALKALINE PHOSPHATASE 98 IU/L (40-150); ANION GAP 13.9 mmol/L (8-16); BLOOD UREA NITROGEN 13 mg/dL (7-26); BUN/CREATININE RATIO 17 (6-25); CALCIUM 8.8 mg/dL (8.4-10.2); CARBON DIOXIDE 18 mmol/L (22-29); CHLORIDE 106 mmol/L (98-107); CREATININE, SERUM 0.75 mg/dL (0.72-1.25); EST GLOMERULAR FILTRATION RATE > 60 ML/MIN (60-); GLUCOSE 142 mg/dL (74-118); POTASSIUM 3.9 mmol/L (3.5-5.1); SODIUM 134 mmol/L (136-145)
--- NOTE | 2019-12-14 07:08 | NUR ---
BEDSIDE SHIFT REPORT GIVEN TO ANGELES ESPARZA.STABLE CONDITION. Addendum: 12/14/19 at 1811 by JANELLE PERSON RN radhames cotter
[2019-12-14] MEDS: METHYLPREDNISOLONE SOD SUCC 40 MG/ML VIAL 1ML IV SCH (09:56)
[2019-12-14] MEDS: VANCOMYCIN 1GM/NS 250 ML 250 ML IV SCH ×2 (09:56→21:33)
--- NOTE | 2019-12-14 12:35 | Progress Note ---
DATE: SUBJECTIVE: Mr. Theodore is feeling better today. He is still having shortness of breath. He said he gets extremely short of breath with minimal movement. He is fatigued. He has no more headache, overall feeling better. He has no fever since admission. His T-max 102 on admission. His white count was 12.7, hemoglobin 14. His sodium 134, potassium 3.9 with a creatinine of 0.6. Blood culture is negative. The patient received 2 units of convalescent plasma. PHYSICAL EXAMINATION: GENERAL: He is currently alert, oriented. VITAL SIGNS: Stable, afebrile. HEENT: He is not icteric. NECK: Supple. CHEST: Crackles bilateral. COR: S1-S2. ABDOMEN: Soft. IMPRESSION: Pneumonia, concerned about healthcare associated. He is currently on cefepime and vancomycin day #2. Concerned about reactive airway disease. He is on methylprednisolone, status post convalescent plasma. Continue with supportive care. Wean steroid as ordered per Pulmonary. MD KIT Larry/MODL /[id number]
--- NOTE | 2019-12-14 15:51 | Progress Note ---
DATE: SUBJECTIVE: The patient has more coughing today. He has slightly increased dyspnea. He is using oxygen at 2 to 3 L. PHYSICAL EXAMINATION: VITAL SIGNS: The blood pressure is 156/96 and saturation is 100%. He is on 3 L. HEENT: Shows no facial swelling or erythema. CARDIAC: Reveals regular rate and rhythm with normal S1 and S2. LUNGS: Auscultation of lungs reveals crackles bilaterally. There is a prolonged expiratory phase. ABDOMEN: Soft and nontender. There is no rebound or guarding. EXTREMITIES: Shows no leg edema or calf tenderness. There is no cyanosis or clubbing. LABORATORY DATA: White blood cell count is 12.7 and the hemoglobin is 14.3. The platelet count is 198. BUN to creatinine ratio is 13 to 0.75. The AST is 114 and the ALT is 131. Albumin is 2.6. IMPRESSION: 1. Viral pneumonia and COVID-19 infection. 2. Asthma with acute exacerbation. 3. Bacterial pneumonia. PLAN: 1. Continue current antibiotics for superimposed bacterial pneumonia. 2. Discontinue IV fluids. 3. Taper steroids. 4. Continue Lovenox for DVT prophylaxis. Calvin Hargrove MD [facility]/MODL /[id number]
[2019-12-14] MEDS: ASCORBIC ACID 500 MG TAB PO SCH (16:51)
[2019-12-14] MEDS: ZINC SULFATE 50 MG CAP PO SCH (16:51)
[2019-12-14] MEDS: ENOXAPARIN SOD INJ 40 MG/0.4 ML SYR SC SCH (17:25)
--- NOTE | 2019-12-14 18:11 | NUR ---
patient up in bed, Alert with no distress, tolerated dinner
--- NOTE | 2019-12-14 21:11 | NUR ---
Assessment done.no resp.distress.no pain voiced.aaox3.ambulates with assistance.bed locked and in lowest position.phone and call light within reach.instructed to call for assistance as needed.
--- NOTE | 2019-12-14 23:16 | NUR ---
12/14/2019 SUBJECTIVE Mr. Theodore is a 49 year old male patient who has been seen and evaluated. The patient is still complaining of mild shortness of breath. The patient denies ch est pain, fever, chills, palpitations, diarrhea, nausea, vomiting, hematemesis, or focal weakness. ROS General: Denies fever, chills Cardia vascular: No CP, no edema Respiratory: SOB. No cough, no hemoptysis. GI: Denies nausea, no vomiting, no diarrhea no hematemesis no Genitourinary: No dysuria, hematuria, no incontinence. No Cunningham catheter. Neuro: No focal weakness. Alert oriented x3 Psychiatrist: No anxiety Objective: Physical exam: Patient was in no distress. Vital signs: Blood pressure: 138/92; HR: 96; RR: 96; O2 sat: 97% on nasal canula HEENT: No gross abnormalities noted. Neck: Supple, no JVD Lungs: Crackles bilaterally. Heart: Regular rate and rhythm no murmurs no gallops Abdomen: Soft nontender, no organomegaly, bowel sounds present. Extremities: No cyanosis, clubbing or edema Neuro: No Patient alert oriented 3 Musculoskeletal: No significant deformity or swelling of joints. Psych: Normal mood 12/14/2019 WBC: 12.76 10*3/uL RBC: 5.07 10*3/uL Hemoglobin: 14.3 g/dL Hematocrit: 42.3% MCV: 83.4 fL MCH: 28.2 pg MCHC: 33.8 g/dL RDW: 13.6 Platelet count: 198 10*3/uL Neutrophils: 85.9 % Lymphocytes: 10.3 % Monocytes: 2.1 % Eosinophils: 0.0 % Basophils: 0.2% Absolute neutrophils: 11.0 10*3/uL Absolute lymphocytes: 1.3 10*3/uL Absolute monocytes: 0.4 10*3/uL Absolute eosinophils: 0.0 10*3/uL Basophils#auto: 0.0 10*3/uL Sodium: 134 mmol/L Potassium 2.9 mmol/L Chloride: 106 mmol/L Enzymatic CO2: 18 mmol/L Anion gap: 13.9 Estimated GFR: >60 BUN/creatinine ratio: 17 Lactic acid: 1.4 (12/13/2019) Glucose: 142 mg/dL Blood urea nitrogen: 13 mg/dL Creatinine kinase: 98 B natruretic peptide:<10.0 (12/13/2019) Creatinine: 1.75 mg/dL Calcium: 8.8 mg/dL Albumin: 2.6 g/dL Globulin: 5.3 Albumin/globulin ratio: 0.5 Bilirubin, total: 0.4 mg/dL Alkaline phosphatase: 98 u/L Protein, total: 7.9 g/dL AST: 114 U/L ALT: 131 U/L Procalcitonin: 0.53 (12/13/2019) Chest x-ray is on 12/13/2019: Interval increase in bilateral airspace opacity, concerning for multifocal pneumonia. Assessment: COVID-19 pneumonia Hyponatremia Elevated LFTs Systemic inflammatory response syndrome Mild obesity Plan of CARE: Supportive care Oxygen as needed Taper Steroids DVT prophylaxis IV antibiotics-vancomycin and cefepime Status post Convalescent plasma-spray pilot study Pulmonary consultation Consultants evaluation noted.
[2019-12-15] VITALS: BP 138/92
[2019-12-15] MEDS: IPRATROPIUM/ALBUTEROL SULFATE 4 GM INH INH SCH ×6 (03:00→23:00)
[2019-12-15 04:00] VITALS: BP 144/96
--- NOTE | 2019-12-15 06:00 | NUR ---
BLOOD GARRISON AND SENT TO THE LAB.PATIENT TOLERATES WELL.
[2019-12-15 06:18] LABS: BASOPHILS % 0.1 % (0.0-1.0); HEMATOCRIT 41.2 % (38.2-49.6); HEMOGLOBIN 13.6 g/dL (14.0-18.0); LYMPHOCYTES % 13.4 % (18.0-39.1); MEAN CORPUSCULAR HEMOGLOBIN 27.9 pg (28-32); MEAN CORPUSCULAR VOLUME 84.6 fL (81-99); MONOCYTES # (AUTO) 0.6 (0.2-0.8); MONOCYTES % 3.9 % (4.4-11.3); NEUTROPHILS % 81.9 % (38.7-80.0); PLATELET COUNT 223 x10e3/uL (140-360); RED BLOOD COUNT 4.87 x10e6/uL (4.3-5.7)
[2019-12-15] MEDS: CEFEPIME 1GM/NS 0.9% 50 ML 50 ML IV SCH ×3 (06:21→22:40)
[2019-12-15 06:35] LABS: ALANINE AMINOTRANSFERASE 208 IU/L (0-55); ALBUMIN 2.5 g/dL (3.5-5.0); ALBUMIN/GLOBULIN RATIO 0.5 (0.8-2.0); ALKALINE PHOSPHATASE 95 IU/L (40-150); BLOOD UREA NITROGEN 17 mg/dL (7-26); BUN/CREATININE RATIO 20 (6-25); CALCIUM 8.5 mg/dL (8.4-10.2); CARBON DIOXIDE 19 mmol/L (22-29); CHLORIDE 109 mmol/L (98-107); CREATININE, SERUM 0.83 mg/dL (0.72-1.25); EST GLOMERULAR FILTRATION RATE > 60 ML/MIN (60-); GLUCOSE 109 mg/dL (74-118); SODIUM 139 mmol/L (136-145)
--- NOTE | 2019-12-15 07:00 | NUR ---
BED SIDE SHIFT REPORT GIVEN TO ONCOMING RN.STABLE CONDITION.
[2019-12-15] MEDS: ASCORBIC ACID 500 MG TAB PO SCH ×2 (07:55→18:07)
[2019-12-15] MEDS: VANCOMYCIN 1GM/NS 250 ML 250 ML IV SCH ×2 (07:55→20:40)
[2019-12-15] MEDS: ZINC SULFATE 50 MG CAP PO SCH ×2 (07:55→18:07)
[2019-12-15 09:05] VITALS: BP 140/87
--- NOTE | 2019-12-15 11:41 | NUR ---
PROGRESS The patient in general feeling better he remains short of breath he remains weak no fever and there is no new complaints Review of system otherwise totally negative except he is having diarrhea today His physical examination currently alert oriented does not seem to be in acute distress his vitals stable afebrile HEENT is normocephalic neck. Check neck sup ple no JVD no nephropathy no thyromegaly chest clear anteriorly heart S1-S2 no S3-S4 murmur abdomen soft bowel sounds present no tenderness no hepatosplenomegaly extremities no edema skin no rash His lab data review chart reviewed laboratory data reviewed Covid 19 Recurrent admission shortness of breath respiratory failure seems to be better Diarrhea concern about drug-induced will start on Questran Superimposed bacterial pneumonia healthcare associated pneumonia to finish 5 days of the current choice of antibiotic vancomycin and cefepime Concern debility continue with IV fluids supportive care will give supplemental zinc and vitamin C
[2019-12-15 12:00] VITALS: BP 133/84
--- NOTE | 2019-12-15 12:07 | NUR ---
12/15/2019 SUBJECTIVE Mr. Theodore has been seen and evaluated. Still complaining of mild shortness of breath. The patient denies chest pain, fever, chills, palpitations, diarrhea, nausea, vomiting, hematemesis, or focal weakness. ROS General: Denies fever, chills Cardia vascular: No CP, no edema Respiratory: SOB. No cough, no hemoptysis. GI: Denies nausea, no vomiting, no diarrhea no hematemesis no Genitourinary: No dysuria, hematuria, no incontinence. No Cunningham catheter. Neuro: No focal weakness. Alert oriented x3 Psychiatrist: No anxiety Objective: Physical exam: Patient was in no distress. Vital signs: Blood pressure: 140/87; HR: 91; RR: 18; O2 sat: 96% on nasal canula HEENT: No gross abnormalities noted. Neck: Supple, no JVD Lungs: Crackles bilaterally. Heart: Regular rate and rhythm no murmurs no gallops Abdomen: Soft nontender, no organomegaly, bowel sounds present. Extremities: No cyanosis, clubbing or edema Neuro: No Patient alert oriented 3 Musculoskeletal: No significant deformity or swelling of joints. Psych: Normal mood 12/14/2019 WBC: 14.65 10*3/uL RBC: 4.87 10*3/uL Hemoglobin: 13.6 g/dL Hematocrit: 41.2 % MCV: 84.6 fL MCH: 27.9 pg MCHC: 33.0 g/dL RDW: 14.0 Platelet count: 223 10*3/uL Neutrophils: 81.9 % Lymphocytes: 13.4 % Monocytes: 2.9 % Eosinophils: 0.0 % Basophils: 0.1% Absolute neutrophils: 12.0 10*3/uL Absolute lymphocytes: 2.0 10*3/uL Absolute monocytes: 0.6 10*3/uL Absolute eosinophils: 0.0 10*3/uL Basophils#auto: 0.0 10*3/uL Sodium: 139 mmol/L Potassium 4.0 mmol/L Chloride: 109 mmol/L Enzymatic CO2: 19 mmol/L Anion gap: 15.0 Estimated GFR: >60 BUN/creatinine ratio: 20 Glucose: 109 mg/dL Blood urea nitrogen: 17 mg/dL Creatinine: 0.83 mg/dL Calcium: 8.5 mg/dL Albumin: 2.5g/dL Globulin: 4.9 Albumin/globulin ratio: 0.5 Bilirubin, total: 0.5 mg/dL Alkaline phosphatase: 95 u/L Protein, total: 7.4 g/dL AST: 147 U/L ALT: 208 U/L Assessment: COVID-19 pneumonia Hyponatremia Elevated LFTs Systemic inflammatory response syndrome Mild obesity 12/14/2019 Supportive care Oxygen as needed Taper Steroids DVT prophylaxis IV antibiotics-vancomycin and cefepime Status post Convalescent plasma-pest control pilot study Pulmonary consultation Consultants evaluation noted. 12/15/2019 The patient has developed diarrhea and was started on Questran and continue IV fluids. The patien is to continue IV antibiotics as advised. List of medications reviewed. Plan of CARE: Continue Oxygen as needed IV antibiotics IV fluids Questran DVT prophylaxis Consultants evaluation noted
[2019-12-15] MEDS: CHOLESTYRAMINE 4 GM PACKET PO PRN (13:50)
--- NOTE | 2019-12-15 16:23 | NUR ---
patient's temp 102.1 dr. farnsworth paged to notify. waiting for return call at this time.
[2019-12-15] MEDS: ACETAMINOPHEN 325 MG TAB PO PRN (17:00)
[2019-12-15] MEDS: ENOXAPARIN SOD INJ 40 MG/0.4 ML SYR SC SCH (18:07)
--- NOTE | 2019-12-15 19:30 | NUR ---
BSSR FROM [facility] PATIENT RECEIVED PATIENT AOX3, NO DISTRESS, PT STATES " I FEEL SO MUCH BETTER", REPORTED THAT PATIENT HAD FEVER 102.1 DURING LAST VITALS CHECKED, PRN TYLENOL GIVEN, CURRENTLY TEMP 98.1 AFEBRILE, RESTING COMFORTABLY, IV ABT CONTINUED ORDERED, IV SITE RT AC #20G PATENT FLUSHES WELL, PATIENT UPDATED ON PLAN OF CARE CALL LIGHT WITHIN REACH
[2019-12-15 20:00] VITALS: BP 140/92
[2019-12-15 20:02] VITALS: BP 140/92
[2019-12-16] VITALS (11 sets, daily range): BP systolic 126–149; BP diastolic 86–97
[2019-12-16] MEDS: IPRATROPIUM/ALBUTEROL SULFATE 4 GM INH INH SCH ×6 (03:00→23:30)
[2019-12-16] MEDS: CEFEPIME 1GM/NS 0.9% 50 ML 50 ML IV SCH ×3 (06:34→22:30)
--- NOTE | 2019-12-16 08:11 | NUR ---
ordered labs collected and delivered blood to lab.
[2019-12-16 08:24] LABS: BASOPHILS % 0.2 % (0.0-1.0); EOSINOPHILS % 0.4 % (0.0-6.0); HEMATOCRIT 41.5 % (38.2-49.6); HEMOGLOBIN 13.7 g/dL (14.0-18.0); LYMPHOCYTES % 19.8 % (18.0-39.1); MEAN CORPUSCULAR HEMOGLOBIN 28.1 pg (28-32); MEAN CORPUSCULAR VOLUME 85.2 fL (81-99); MONOCYTES # (AUTO) 0.3 (0.2-0.8); MONOCYTES % 2.7 % (4.4-11.3); NEUTROPHILS # (AUTO) 7.6 (2.1-6.9); NEUTROPHILS % 76.1 % (38.7-80.0); PLATELET COUNT 227 x10e3/uL (140-360); RED BLOOD COUNT 4.87 x10e6/uL (4.3-5.7); RED CELL DISTRIBUTION WIDTH 13.9 % (11.7-14.4)
[2019-12-16 08:49] LABS: ALANINE AMINOTRANSFERASE 155 IU/L (0-55); ALBUMIN 2.4 g/dL (3.5-5.0); ALBUMIN/GLOBULIN RATIO 0.5 (0.8-2.0); ALKALINE PHOSPHATASE 107 IU/L (40-150); ANION GAP 14.9 mmol/L (8-16); BLOOD UREA NITROGEN 12 mg/dL (7-26); BUN/CREATININE RATIO 16 (6-25); CALCIUM 8.6 mg/dL (8.4-10.2); CARBON DIOXIDE 17 mmol/L (22-29); CHLORIDE 106 mmol/L (98-107); CREATININE, SERUM 0.75 mg/dL (0.72-1.25); EST GLOMERULAR FILTRATION RATE > 60 ML/MIN (60-); GLUCOSE 137 mg/dL (74-118); POTASSIUM 3.9 mmol/L (3.5-5.1); SODIUM 134 mmol/L (136-145)
--- NOTE | 2019-12-16 08:49 | Progress Note ---
DATE: SUBJECTIVE: The patient still has some dyspnea. He gets short of breath with minimal exertion. He also complains of some wheezing and some cough. He reports some relief with inhalers. PHYSICAL EXAMINATION: VITAL SIGNS: The blood pressure is 134/90. Saturation is 95% and the pulse is 102. HEENT: Shows no facial swelling or erythema. CARDIAC: Reveals regular rate and rhythm with normal S1 and S2. LUNGS: Auscultation of lungs reveals crackles at the bases as well as wheezing. ABDOMEN: Soft and nontender. There is no rebound or guarding. EXTREMITIES: Shows no leg edema or calf tenderness. There is no cyanosis or clubbing. SKIN: Shows no rashes. IMPRESSION: 1. Viral pneumonia and COVID-19 infection. 2. Bacterial pneumonia. 3. Asthma with acute exacerbation. 4. Diarrhea. 5. Metabolic acidosis. 6. Hypoalbuminemia. PLAN: 1. Repeat chest x-ray now. 2. Repeat CBC and CMP. 3. Continue bronchodilators. 4. Continue Lovenox. 5. Continue antipyretics. Calvin Hargrove MD [facility]/MODL /[id number]
[2019-12-16] MEDS: VANCOMYCIN 1GM/NS 250 ML 250 ML IV SCH ×2 (09:35→20:30)
[2019-12-16] MEDS: ASCORBIC ACID 500 MG TAB PO SCH ×2 (09:35→17:04)
--- NOTE | 2019-12-16 09:35 | NUR ---
vancomycin trough order added on to morning labs.
[2019-12-16] MEDS: CHOLESTYRAMINE 4 GM PACKET PO PRN (09:36)
[2019-12-16] MEDS: ZINC SULFATE 50 MG CAP PO SCH ×2 (09:36→17:04)
[2019-12-16] MEDS: ENOXAPARIN SOD INJ 40 MG/0.4 ML SYR SC SCH (16:11)
--- NOTE | 2019-12-16 18:12 | NUR ---
patient doing well. on 3L nasal cannula. pt assisted to shower and showered himself while on 3L. states he feels good. wclise.
--- NOTE | 2019-12-16 18:39 | Diagnostic Imaging Report ---
EXAMINATION: CHEST SINGLE (PORTABLE) INDICATION: Viral pneumonia COMPARISON: Chest radiograph 12-13-2019. FINDINGS: LINES/TUBES:EKG leads overlie the chest. LUNGS:The lung volumes are low. Slightly increased bilateral airspace opacities. PLEURA:No pleural effusion or pneumothorax. MEDIASTINUM:The cardiomediastinal silhouette appears mildly enlarged, likely accentuated by portable technique. BONES/SOFT TISSUES:No acute osseous injury. ABDOMEN:No free air under the diaphragm. IMPRESSION: Slightly increased bilateral airspace opacities, consistent with viral pneumonia. Signed by: Dr. Esme Aguilar MD on 12/16/2019 6:35 PM
--- NOTE | 2019-12-16 19:30 | NUR ---
BSSR RECEIVED PATIENT AWAKE ALERT, ORIENTED NO DISTRESS NOTED, RESP EVEN SHALLOW, LUNG SOUNDS WHEEZING AUSCULTATED CA RUL, PATIENT DENIES CHEST PAIN, CALL LIGHT WITHIN REACH
--- NOTE | 2019-12-16 23:16 | Progress Note ---
DATE: 12/16/2019 SUBJECTIVE: The patient was doing fine at the time of my evaluation. The patient had hysterectomy on 12/15/2019, which was yesterday and the following day he stated that he was feeling much better and the patient was given convalescent plasma. His breathing did improve after that. No chest pain. No abdominal pain. No nausea or vomiting. No fever and no chills. As of today, December 16, 2019, the patient continues to do well, feeling better in no distress. Symptoms have improved as far as his breathing is concerned and T-max of 100.1. OBJECTIVE: GENERAL: The patient has been alert and oriented to person, time, and place. VITAL SIGNS: Blood pressure 141/87, respirations 20, pulse 95, temperature is 99.0. HEENT: Head is normocephalic and atraumatic. NECK: Supple. No JVD. LUNGS: Clear to auscultation. HEART: Regular rate and rhythm. ABDOMEN: Soft, nontender. EXTREMITIES: No edema. NEUROLOGIC: Alert and oriented x3. LABORATORY DATA: CBC disclosed hemoglobin 13.7, white blood cell count 9.7, platelet count 227,000. Chem profile reveal sodium 134, potassium 3.9, chloride 106, BUN 12, creatinine 0.7, albumin 2.4, bilirubin 5.3. Chest x-ray slight increase, bilateral airspace opacity consistent with viral pneumonia. ASSESSMENT: 1. COVID-19 viral pneumonia. 2. Hyponatremia, improved. 3. Elevated liver function tests, improved. 4. Systemic inflammatory response syndrome. PLAN OF CARE: 1. Continue present care as advised. 2. List of medications noted. MD JUANITA Robertson/IRENA /[id number] MTDParminder
[2019-12-17] VITALS (7 sets, daily range): BP systolic 121–146; BP diastolic 80–92
[2019-12-17] MEDS: IPRATROPIUM/ALBUTEROL SULFATE 4 GM INH INH SCH ×5 (02:32→19:18)
[2019-12-17] MEDS: CEFEPIME 1GM/NS 0.9% 50 ML 50 ML IV SCH ×3 (05:03→21:00)
[2019-12-17] MEDS: ACETAMINOPHEN 325 MG TAB PO PRN ×3 (05:17→20:45)
--- NOTE | 2019-12-17 07:00 | NUR ---
RECEIVED PATIENT AWAKE RESTING IN BED NO S/S OF DISTRESS. BED LOW, WHEELS LOCKED, SIDE RAILS X2. CALL LIGHT IN REACH WILL CONTINUE TO MONITOR PATIENT.
[2019-12-17] MEDS: ASCORBIC ACID 500 MG TAB PO SCH ×2 (08:04→16:45)
[2019-12-17] MEDS: ZINC SULFATE 50 MG CAP PO SCH ×2 (08:04→16:45)
[2019-12-17] MEDS: VANCOMYCIN 1GM/NS 250 ML 250 ML IV SCH ×2 (08:04→21:22)
[2019-12-17 08:23] LABS: BASOPHILS % 0.2 % (0.0-1.0); EOSINOPHILS # (AUTO) 0.2 (0.0-0.4); EOSINOPHILS % 1.9 % (0.0-6.0); HEMATOCRIT 41.8 % (38.2-49.6); HEMOGLOBIN 13.7 g/dL (14.0-18.0); LYMPHOCYTES # (AUTO) 1.7 (1.0-3.2); LYMPHOCYTES % 19.5 % (18.0-39.1); MEAN CORPUSCULAR HEMOGLOBIN 27.8 pg (28-32); MEAN CORPUSCULAR HGB CONC 32.8 g/dL (31-35); MEAN CORPUSCULAR VOLUME 84.8 fL (81-99); MONOCYTES # (AUTO) 0.4 (0.2-0.8); NEUTROPHILS # (AUTO) 6.4 (2.1-6.9); NEUTROPHILS % 72.2 % (38.7-80.0); PLATELET COUNT 260 x10e3/uL (140-360); RED BLOOD COUNT 4.93 x10e6/uL (4.3-5.7); RED CELL DISTRIBUTION WIDTH 14.2 % (11.7-14.4)
[2019-12-17 08:32] LABS: ANION GAP 15.7 mmol/L (8-16); BLOOD UREA NITROGEN 11 mg/dL (7-26); BUN/CREATININE RATIO 15 (6-25); CALCIUM 9.1 mg/dL (8.4-10.2); CARBON DIOXIDE 19 mmol/L (22-29); CHLORIDE 106 mmol/L (98-107); CREATININE, SERUM 0.71 mg/dL (0.72-1.25); EST GLOMERULAR FILTRATION RATE > 60 ML/MIN (60-); GLUCOSE 87 mg/dL (74-118); POTASSIUM 3.7 mmol/L (3.5-5.1); SODIUM 137 mmol/L (136-145)
--- NOTE | 2019-12-17 12:43 | Progress Note ---
DATE: SUBJECTIVE: The patient is still with some cough and wheezing. He reports some chest tightness. He has less fever. PHYSICAL EXAMINATION: VITAL SIGNS: Stable. The blood pressure is 121/80 and the saturation is 94% on 3 L. The pulse is 101. HEENT: No facial swelling or erythema. CARDIAC: Regular rate and rhythm with normal S1 and S2. LUNGS: Auscultation of the lungs reveals clear breath sounds bilaterally. There is no wheezing. ABDOMEN: Soft, nontender. There is no rebound or guarding. EXTREMITIES: No leg edema or calf tenderness. There is no cyanosis or clubbing. SKIN: No rashes. IMPRESSION: 1. Viral pneumonia and COVID-19 infection. 2. Bacterial pneumonia. 3. Asthma with acute exacerbation. 4. Diarrhea. 5. Metabolic acidosis. PLAN: 1. Continue chest x-ray antibiotics. 2. Inhalers. 3. Cough suppressant as needed. 4. Continue Lovenox. Calvin Hargrove MD [facility]/IRENA /[id number]
[2019-12-17] MEDS: GUAIFENESIN/CODEINE 10 ML CUP PO PRN (16:45)
[2019-12-17] MEDS: ENOXAPARIN SOD INJ 40 MG/0.4 ML SYR SC SCH (16:45)
[2019-12-18] VITALS: BP_SYST 113; BP_SYST 121; BP_DIAS 82; BP_DIAS 96
[2019-12-18] MEDS: IPRATROPIUM/ALBUTEROL SULFATE 4 GM INH INH SCH ×5 (02:25→15:38)
[2019-12-18] MEDS: ACETAMINOPHEN 325 MG TAB PO PRN ×2 (02:40→08:29)
--- NOTE | 2019-12-18 02:50 | Progress Note ---
DATE: 12/17/2019 SUBJECTIVE: The patient is doing fine, breathing better, in no distress. No chest pain. No abdominal pain. No nausea or vomiting. No diarrhea. No fever. No chills. OBJECTIVE: GENERAL: The patient is alert, oriented to person, time, and place. The patient in no distress. VITAL SIGNS: Blood pressure 135/92, respirations 20, pulse 97, temperature 98.5. O2 saturation 95% on 3 L of nasal cannula. HEENT: Head is normocephalic and atraumatic. NECK: Supple. No JVD. LUNGS: Clear to auscultation. HEART: Regular rate and rhythm. ABDOMEN: Soft, nontender. EXTREMITIES: No edema. NEUROLOGIC: Nonfocal. LABORATORY DATA: CBC disclosed hemoglobin 13.7, white blood cell count 8.86, platelet count 260,000. Sodium 137, potassium 3.7, chloride 106, CO2 19, BUN 11 and creatinine 0.71. ASSESSMENT: 1. COVID-19 viral pneumonia. 2. Hyponatremia, resolved. 3. Elevated liver function tests, improved. PLAN OF CARE: 1. The patient is doing fine. 2. Continue present care. 3. List of medications noted. 4. The patient is presently on vancomycin, cefepime, acetaminophen, zinc sulfate, ascorbic acid, Questran. 5. DVT prophylaxis consisting of Lovenox 40 mg subcutaneously daily MD JUANITA Robertson/IRENA /[id number] MTDD
[2019-12-18] MEDS: CEFEPIME 1GM/NS 0.9% 50 ML 50 ML IV SCH ×2 (05:40→15:38)
[2019-12-18 07:42] VITALS: BP 116/84
[2019-12-18] MEDS: VANCOMYCIN 1GM/NS 250 ML 250 ML IV SCH (08:29)
[2019-12-18] MEDS: ZINC SULFATE 50 MG CAP PO SCH ×2 (08:29→15:38)
[2019-12-18] MEDS: ASCORBIC ACID 500 MG TAB PO SCH ×2 (08:29→15:38)
[2019-12-18] MEDS: GUAIFENESIN/CODEINE 10 ML CUP PO PRN (09:02)
[2019-12-18 09:17] VITALS: BP 116/84
--- NOTE | 2019-12-18 11:29 | NUR ---
RECEIVED REQUEST FOR HOME O2 @ [place]. CALL TO PT TO DISCUSS CHOICE. PT STATES HE HAS [employer] AND ANY COMPANY THAT ACCEPTS HIS INSURANCE IS OK. PT CHOSE [facility], THEN [facility]. REFERRAL FAXED TO [facility] @ OFF: [phone] / FAX: [phone]. NOTIFIED MICHELLE VALENZUELA
[2019-12-18 12:00] VITALS: BP 116/80
--- NOTE | 2019-12-18 12:30 | NUR ---
Home oxygen delivered to bedside.
--- NOTE | 2019-12-18 15:08 | Progress Note ---
DATE: SUBJECTIVE: The patient feels better. He has less wheezing and less coughing. He reports improvement with his inhaler. PHYSICAL EXAMINATION: VITAL SIGNS: Stable. HEENT: No facial swelling or erythema. CARDIAC: Regular rate and rhythm with normal S1, S2. LUNGS: Auscultation of lungs reveals clear breath sounds bilaterally. There is no wheezing. ABDOMEN: Soft, nontender. There is no rebound or guarding. EXTREMITIES: No leg edema or calf tenderness. There is no cyanosis clubbing. SKIN: No rashes. NEUROLOGICAL: No focal abnormalities. IMPRESSION: 1. Viral pneumonia and coronavirus disease-19 infection. 2. Bacterial pneumonia. 3. Asthma with acute exacerbation. PLAN: 1. Discharge home. 2. Continue inhalers as needed. 3. Temporary home oxygen. 4. Complete p.o. antibiotics at home. Calvin Hargrove MD [facility] /[id number]
[2019-12-18] MEDS: ENOXAPARIN SOD INJ 40 MG/0.4 ML SYR SC SCH (15:38)
[2019-12-18 16:00] VITALS: BP 120/84
--- NOTE | 2019-12-18 16:40 | Progress Note ---
DATE: SUBJECTIVE: Mr. Theodore is feeling better today. His oxygenating has improved. PHYSICAL EXAMINATION: GENERAL: Currently, alert, oriented, does not seem to be in acute distress. VITAL SIGNS: Stable. Afebrile. HEENT: He is not icteric. NECK: Supple. CHEST: Few crackles at the bases. HEART: S1 and S2. No S3, S4 or murmurs. ABDOMEN: Soft. IMPRESSION: 1. COVID-19. 2. Healthcare associated pneumonia, clinically improving. He can be discharged home with oxygen, to stay in home quarantine for at least two weeks. Discussed with the patient. He can use zinc supplement and vitamin C supplement. Follow up with me in three weeks. MD KIT Larry/IRENA /[id number]
[2019-12-18] MEDS ORDERED: Zinc Sulfate PO (17:39)
[2019-12-18] MEDS ORDERED: ACETAMINOPHEN325 M1 PO (17:39)
[2019-12-18] MEDS ORDERED: CHOLESTYRAMINE L4 GM PO (17:39)
[2019-12-18] MEDS ORDERED: ASCORBIC ACID500 MG PO (17:39)
[2019-12-18] MEDS ORDERED: COMBIVENT RESPIM4 GM INH (17:39)
--- NOTE | 2019-12-18 19:02 | NUR ---
patient discharged. IV access removed. telemetry removed, cleansed and returned. patient educated on home oxygen tank and instructions for when he arrives at home to call [facility]. patient clear on instructions for home and follow up appointments needed. patient wheeled to personal vehicle in stable condition.
--- NOTE | 2019-12-19 06:02 | Discharge Summary ---
FINAL DIAGNOSES: 1. COVID-19 viral pneumonia. 2. Hyponatremia. 3. Elevated liver function tests. 4. Systemic Inflammatory Response Syndrome 5. History of bronchial asthma. 6. Diarrhea. 7. Metabolic acidosis. 8. Superimposed bacterial pneumonia, could not be ruled out. HOSPITAL COURSE: Mr. Kenneth Theodore is a 49-year-old gentleman, admitted under my service and was recently being discharged from the hospital on December 14, 2019. However, the patient had to be returned to the hospital in view of ongoing symptoms and has been treated for COVID-19. In view of improvement, the patient was discharged home. He, however, presented with increased shortness of breath and had a chest x-ray done and treated empirically with the intravenous antibiotics consisting of vancomycin and ceftriaxone. Based on the clinical evaluation, the patient likely did have developed pneumonia rather than bacterial pneumonia. ID was consulted, Dr. Evans and Pulmonary consultation were requested with Dr. Hargrove. The patient did well and discharged in stable condition. DIET: Renal diet. ACTIVITY LEVEL: Self-isolation for least two weeks. DISPOSITION: Followup with the patient's primary care physician within the next three weeks, if indeed needed follow up with ID, Dr. Evans. CONDITION ON DISCHARGE: Stable. MD JUANITA Robertson/IRENA /[id number] ELLIS
== END 2019-12-18 19:06 | disposition home or self-care (01) | DRG 177 ==
LOC: ER 08:47 → ERHOLD 10:39 → IMCU 12:06
PROVIDERS: ADMIT Internal Medicine; ATTEND Internal Medicine
PROC: 8E0ZXY6 Isolation (ICD-10-PCS; principal; 2019-12-13)
PROC: 30233K1 Transfusion of Nonautologous Frozen Plasma into Peripheral Vein, Percutaneous Approach (ICD-10-PCS; 2019-12-14)
DX: U07.1 COVID-19 (principal); J12.89 Other viral pneumonia; E87.2 Acidosis; E87.1 Hypo-osmolality and hyponatremia; J45.901 Unspecified asthma with (acute) exacerbation; K52.1 Toxic gastroenteritis and colitis; E78.5 Hyperlipidemia, unspecified; Z87.442 Personal history of urinary calculi; E66.9 Obesity, unspecified; R94.5 Abnormal results of liver function studies; R00.0 Tachycardia, unspecified; E88.09 Other disorders of plasma-protein metabolism, not elsewhere classified; T50.905A Adverse effect of unspecified drugs, medicaments and biological substances, initial encounter; R53.81 Other malaise; Z68.34 Body mass index [BMI] 34.0-34.9, adult
CPT/HCPCS: 36415; 36600; 71045; 80048; 80053; 80202; 81001; 82550; 82553; 82805; 83605; 83880; 84145; 84484; 85025; 85379; 86900; 87040; 87635; 93005; 99251; 99284; J0456; J0692; J0696; J1650; J2405; J2920; J2930; J3370; J7030; P9017

== ENCOUNTER 2023-09-22 17:38 | Emergency (ER) | payer OTHER ==
[~2023-09-22] VITALS: Ht 167.6 cm; Wt 109.8 kg
[~2023-09-22 17:38] MED LIST changes: +ACETAMINOPHEN325 M1 PO; +AMOX TR-K CLV1 EAC2 PO; +ASCORBIC ACID500 MG PO; +CHOLESTYRAMINE L4 GM PO; +COMBIVENT RESPIM4 GM INH; +Zinc Sulfate PO
[2023-09-22 18:07] LABS: BASOPHILS % 0.3 % (0.0-1.0); EOSINOPHILS # (AUTO) 0.2 (0.0-0.4); EOSINOPHILS % 3.2 % (0.0-6.0); HEMATOCRIT 46.4 % (38.2-49.6); HEMOGLOBIN 15.1 g/dL (14.0-18.0); LYMPHOCYTES # (AUTO) 3.5 (1.0-3.2); LYMPHOCYTES % 58.6 % (18.0-39.1); MEAN CORPUSCULAR HEMOGLOBIN 28.8 pg (28-32); MEAN CORPUSCULAR HGB CONC 32.5 g/dL (31-35); MEAN CORPUSCULAR VOLUME 88.4 fL (81-99); MONOCYTES # (AUTO) 0.5 (0.2-0.8); MONOCYTES % 7.9 % (4.4-11.3); NEUTROPHILS # (AUTO) 1.8 (2.1-6.9); NEUTROPHILS % 29.8 % (38.7-80.0); PLATELET COUNT 159 x10e3/uL (140-360); RED BLOOD COUNT 5.25 x10e6/uL (4.3-5.7); RED CELL DISTRIBUTION WIDTH 12.9 % (11.7-14.4); WHITE BLOOD COUNT 5.94 x10e3/uL (4.8-10.8)
[2023-09-22] MEDS: METHYLPREDNISOLONE SOD SUCC 125 MG/2ML VIAL IV STA (18:25)
[2023-09-22 18:26] LABS: ALBUMIN 3.8 g/dL (3.5-5.0); ALBUMIN/GLOBULIN RATIO 0.9 (0.8-2.0); ANION GAP 13.7 mmol/L (8-16); BILIRUBIN,TOTAL 0.4 mg/dL (0.2-1.2); CALCIUM 9.3 mg/dL (8.4-10.2); CREATININE, SERUM 0.78 mg/dL (0.72-1.25); POTASSIUM 3.7 mmol/L (3.5-5.1); TOTAL PROTEIN 8.1 g/dL (6.5-8.1)
[2023-09-22 18:32] LABS: TROPONIN I 0.005 ng/mL (0-0.300)
[2023-09-22] MEDS ORDERED: IOPAMIDOL 370 MG/ML 100 ML INFUS..BTL INJ ONE (18:33)
[2023-09-22] MEDS: SODIUM CHLORIDE FLUSH 10 ML SYR IV PRN (18:33)
[2023-09-22 18:41] LABS: INFLUENZAE A&B ANTIGEN (RAPID) NEGATIVE (NEGATIVE); RESPIRATORY SYNC. VIRUS NEGATIVE (NEGATIVE)
[2023-09-22 18:46] LABS: STREPTOCOCCUS GRP A ANTIGEN NEGATIVE (NEGATIVE)
[2023-09-22 19:34] VITALS: PULSE 81; RESP 18; O2SAT 99
[2023-09-22] MEDS: ALBUTEROL/IPRATROPIUM 3 ML NEB NEB STA (19:38)
[2023-09-22 19:53] VITALS: PULSE 78; RESP 18; O2SAT 100
[2023-09-22] MEDS ORDERED: AZITHROMYCIN250 MG PO (20:14)
[2023-09-22] MEDS ORDERED: PREDNISONE20 MG PO (20:14)
[2023-09-22] MEDS ORDERED: VENTOLIN HFA18 GM INH (20:14)
[2023-09-22 20:24] VITALS: TEMP 98.5
== END 2023-09-22 20:26 | disposition home or self-care (01) ==
LOC: ER 18:07
DX: R05.9 Cough, unspecified (principal); R07.89 Other chest pain; J40 Bronchitis, not specified as acute or chronic; E78.5 Hyperlipidemia, unspecified; Z11.52 Encounter for screening for COVID-19; Z87.442 Personal history of urinary calculi
CPT/HCPCS: 36415; 71045; 71260; 80053; 83518; 84484; 85025; 87070; 87400; 87420; 93005; 94640; 94760; 94799; 99283; J2930; Q9967; U0002